=== PATIENT | male | born 1980 | race Caucasian/White ===

== ENCOUNTER 2021-10-12 16:19 | Inpatient (IN) | payer SELFPAY ==
[2021-10-12] VITALS (18 sets, daily range): BP systolic 101–158; BP diastolic 69–107; PULSE 88–133; RESP 15–28; TEMP 36.3–36.8; O2SAT 92–99
--- NOTE | ~2021-10-12 | XR_ITS ---
EXAMINATION: XR chest 1V portable DATE: 10/13/2021 13:20 INDICATION: Right pneumothorax. TECHNIQUE: A single frontal view of the chest was obtained. COMPARISON: View 10/12/2021 FINDINGS: There is a moderate-sized right pneumothorax. There are airspace opacities throughout right lung, worst in the upper lobe. No pleural effusion. The heart size is normal. There is gas in right chest wall. A right-sided chest tube is noted. IMPRESSION: 1. Worsened moderate-sized right pneumothorax. Right-sided chest tube noted. 2. Worsened airspace opacities in right lung, consistent with atelectasis and pulmonary edema versus pneumonia versus hemorrhage. Reviewed, dictated and finalized at location A. HOLOGIST MILITARY PERSONNEL IMPRESSION: 1. Worsened moderate-sized right pneumothorax. Right-sided chest tube noted. 2. Worsened airspace opacities in right lung, consistent with atelectasis and p ulmonary edema versus pneumonia versus hemorrhage.
--- NOTE | ~2021-10-12 | XR_ITS ---
EXAMINATION: XR chest 1V portable DATE: 10/14/2021 08:37 INDICATION: Right pneumothorax. TECHNIQUE: A single frontal view of the chest was obtained. COMPARISON: Chest single view 10/13/2021 FINDINGS: There is a tiny right apical pneumothorax. Right-sided chest tube is noted. There are airsp abigail opacities in all right lung zones. No pleural effusion. The heart size is normal. There is gas in right chest wall and right neck. IMPRESSION: 1. Tiny right apical pneumothorax with interval improvement. Right-sided chest tube noted. 2. Persistent airspace opacities in all right lung zones, consistent with pulmonary edema versus pneu monia versus hemorrhage. Reviewed, dictated and finalized at location A. TH MANAGEMENT DIRECTOR IMPRESSION: 1. Tiny right apical pneumothorax with interval improvement. Right-sided chest tube noted. 2. Persistent airspace opacities in all right lung zones, consistent with pulmo nary edema versus pneumonia versus hemorrhage.
--- NOTE | ~2021-10-12 | XR_ITS ---
EXAMINATION: XR chest 1V portable DATE: 10/12/2021 16:34 INDICATION: Right chest pain. TECHNIQUE: A single frontal view of the chest was obtained. COMPARISON: None. FINDINGS: There is a large right pneumothorax. There is atelectasis in right lung. No pleural effusio n. The heart size is normal. IMPRESSION: 1. Large right pneumothorax. I called this result to Dr. Joe Mas. Reviewed, dictated and finalized at location A. TLE MACHINE OPERATOR
--- NOTE | ~2021-10-12 | XR_ITS ---
EXAMINATION: XR chest 1V portable DATE: 10/15/2021 14:14 INDICATION: Right pneumothorax. TECHNIQUE: A single frontal view of the chest was obtained. COMPARISON: Chest single view at 8:40 AM FINDINGS: There is a small right pneumothorax. There are airspace opacities in all right lung zones. No pleural effusion. The heart size is normal. There is gas in right chest wall. IMPRESSION: 1. Small right pneumothorax with interval improvement. 2. Airspace opacities in right lung with mild improvement, consistent with pneumonia versus pulmonary edema versus hemorrhage. Reviewed, dictated and finalized at location A. ION MODEL IMPRESSION: 1. Small right pneumothorax with interval improvement. 2. Airspace opacities in right lung with mild improvement, consistent with pneu monia versus pulmonary edema versus hemorrhage.
--- NOTE | ~2021-10-12 | XR_ITS ---
EXAMINATION: XR chest 1V portable DATE: 10/15/2021 09:10 INDICATION: Right pneumothorax. TECHNIQUE: A single frontal view of the chest was obtained. COMPARISON: Chest single view 10/14/2021 FINDINGS: There is a small right pneumothorax. A right-sided chest tube is noted. The chest tube has been retracted since its initial placement. There are airspace opacities in all right lung zones. No pleural effusion. The heart size is normal. There is gas in right chest wall. IMPRESSION: 1. Worsened small right pleural effusion. The right-sided chest tube has been retracted since its ini tial placement, but some of the tube still overlies lung. 2. Airspace opacities in right lung with mild improvement, consistent with pneumonia versus pulmonary edema versus hemorrhage. Reviewed, dictated and finalized at location A. TATION INSPECTOR IMPRESSION: 1. Worsened small right pleural effusion. The right-sided chest tube has been r etracted since its initial placement, but some of the tube still overlies lung. 2. Airspace opacities in right lung with mild improvement, consistent with pneu monia versus pulmonary edema versus hemorrhage.
--- NOTE | ~2021-10-12 | XR_ITS ---
XR chest-chest tube insert/pos DATE: 10/12/2021 17:54 INDICATION: Chest tube insertion TECHNIQUE: Portable upright AP chest on 10/12/2021 at 1749 hours COMPARISON: 10/12/2021 portable AP chest at 1630 hours FINDINGS: There is interval placement of a right thoracostomy tube, the distal tip overlying the righ t fifth intercostal space posteriorly. There is mild subcutaneous emphysema of the lateral right ches t wall but the right lung is almost completely reexpanded, with very slight residual pneumothorax. Normal heart size. No cardiac or mediastinal shift. Minimal infiltrate or atelectasis of the lungs. IMPRESSION: Interval right thoracostomy tube placement with nearly complete reexpansion of the right lung, mild right chest wall subcutaneous emphysema Reviewed, dictated and finalized at Location A. Reviewed, dictated and finalized at location A. AL STICKER IMPRESSION: Interval right thoracostomy tube placement with nearly complete ree xpansion of the right lung, mild right chest wall subcutaneous emphysema
--- NOTE | 2021-10-12 16:42 | ED.SOB ---
HPI - SOB/Dyspnea General Chief Complaint: Shortness of Breath/Dyspnea <Irlanda Nicholson PA-C - Last Filed: 10/12/21 18:26> Stated Complaint: SOB, ? PNEUMO <Irlanda Nicholson PA-C - Last Filed: 10/12/21 18:26> Time Seen by Provider: 10/12/21 16:34 <Irlanda Nicholson PA-C - Last Filed: 10/12/21 18:26> Source: patient <TESS Coy Last Filed: 10/12/21 18:26> Mode of arrival: EMS <TESS Coy Last Filed: 10/12/21 18:26> Limitations: no limitations <TESS Coy Last Filed: 10/12/21 18:26> History of Present Illness HPI Narrative: This is a 41-year-old male that presents to the emergency department for shortness of breath ongoing since this morning. Reports he has had a dry cough for about the last month. Today he had a coughing attack and felt a pop in his right lung. Since he has had pain and felt even more short of breath. He was seen at the urgent care and diagnosed with a pneumothorax and sent here via EMS. Reports he is a former smoker, he quit smoking 6 weeks ago. Denies fever. <TESS Coy Last Filed: 10/12/21 18:26> Related Data Home Medications: Home Medications Medication Instructions Recorded Confirmed omeprazole 20 mg PO DAILY 10/12/21 <TESS Coy Last Filed: 10/12/21 18:26> Allergies/Adverse Reactions: Allergies Allergy/AdvReac Type Severity Reaction Status Date / Time naproxen Allergy Unknown Unconscious Verified 10/12/21 17:03 DIMETAPP Allergy Unknown Hives Uncoded 10/12/21 17:03 <TESS Coy Last Filed: 10/12/21 18:26> Review of Systems Review of Systems: CONSTITUTIONAL: Denies fever CARDIOVASCULAR: Reports chest pain. Denies edema. RESPIRATORY: Reports cough and dyspnea. <TESS Coy Last Filed: 10/12/21 18:26> All systems reviewed & are unremarkable except as noted in HPI and below <Irlanda Nicholson PA-C - Last Filed: 10/12/21 18:26> PMFSH Past Medical History Medical History: Medical History History of gastroesophageal reflux (GERD) <Irlanda Nicholson PA-C - Last Filed: 10/12/21 18:26> Social History Social History: Social History (Updated 10/12/21 @ 16:43 by Irlanda Nicholson PA-C) Smoking status: Former smoker <Irlanda Nicholson PA-C - Last Filed: 10/12/21 18:26> Exam Narrative: GENERAL: Well-appearing, well-nourished, and in no acute distress. HEAD: Normocephalic, atraumatic. EYES: EOMI. CHEST: No respiratory distress. Lung sounds diminished on the right. No wheezes rales or rhonchi HEART: Regular rate and rhythm. No murmur heard. Normal peripheral pulses. EXTREMITIES: Normal range of motion. No edema. SKIN: Warm, dry, no rash. NEURO: No focal deficits. Alert and oriented x3. PSYCH: Normal mood and affect <Irlanda Nicholson PA-C - Last Filed: 10/12/21 18:26> Course RELAY TESTER/PA Physician Supervision For this patient encounter, I reviewed the RELAY TESTER or PA documentation, treatment plan, and medical decision making; and I had lspi-gl-mpac time with this patient. I was also present during the procedure. <Joe Mas MD - Last Filed: 10/12/21 20:32> Consultations Consultation #1: Spoke with hospitalist about patient and work-up who accepts admission. Would like patient to be Covid swabbed. <Irlanda Nicholson PA-C - Last Filed: 10/12/21 18:26> Date: 10/12/21 <Irlanda Nicholson PA-C - Last Filed: 10/12/21 18:26> Consultation #2: Spoke with general surgery who will consult <Irlanda Nicholson PA-C - Last Filed: 10/12/21 18:26> Date: 10/12/21 <Irlanda Nicholson PA-C - Last Filed: 10/12/21 18:26> Vital Signs Vital signs: Vital Signs Temperature 98.2 F 10/12/21 16:20 Pulse Rate 115 H 10/12/21 16:20 Respiratory Rate 20 10/12/21 16:20 Blood Pressure 155/107 H 10/12/21 16:20 Pulse Oximetry 95 10/12/21 16:20 Temperature 98.2
[2021-10-12 16:52] LABS: Basophils Absolute Auto 0.1 K/mm3 (0.0-0.1); Basophils Percent Auto 0.5 % (0.2-1.2); Eosinophils Absolute Auto 0.1 K/mm3 (0-0.3); Eosinophils Percent Auto 0.7 % (0-4.4); Hematocrit 53.1 % (42.0-52.0); Hemoglobin 18.5 g/dL (14.0-18.0); Immature Granulocyte Absolute 0.03 K/mm3 (0.00-0.031); Immature Granulocyte Percent A 0.2 % (0-0.5); Lymphocytes Absolute Auto 2.88 K/mm3 (0.9-3.2); Lymphocytes Percent Auto 21.1 % (18.3-44.2); Mean Corpuscular HGB Conc 34.8 g/dl (32-36); Mean Corpuscular Hemoglobin 30.8 pg (26-34); Mean Corpuscular Volume 88.4 fl (80-100); Mean Platelet Volume 10.2 fl (7.4-10.4); Monocytes Absolute Auto 1.3 K/mm3 (0.1-0.6); Monocytes Percent Auto 9.4 % (2.6-8.5); Neutrophils Absolute Auto 9.3 K/mm3 (1.3-6.7); Neutrophils Percent Auto 68.1 % (45.5-73.1); Platelet Count Result 332 k/mm3 (150-375); Red Blood Count 6.01 M/mm3 (4.6-6.20); Red Cell Distribution Width 12.4 % (11.5-14.5); White Blood Count 13.7 K/mm3 (4.5-10.0)
[2021-10-12] MEDS: fentaNYL CITRATE INJ (*CRX) 100 MCG/2 ML VIAL IV PUSH (17:10)
[2021-10-12 17:20] LABS: Prothrombin Time 12.8 Seconds (11.1-14.7)
[2021-10-12 17:35] LABS: Alanine Aminotransferase 41 U/L (4-50); Albumin Level 4.7 g/dL (3.5-5.1); Alkaline Phosphatase 71 U/L (38-126); Anion Gap 14 mmol/L (8-16); Aspartate Amino Transferase 32 U/L (17-59); Blood Urea Nitrogen 10 mg/dL (9-20); Calcium 9.6 mg/dL (8.4-10.2); Carbon Dioxide 23 mmol/L (22-30); Chloride 101 mmol/L (98-107); Estimated CRCL calculation 122 ml/min; Estimated Glomerular Filt Rate > 60; Glucose 113 mg/dL (65-110); Potassium 3.8 mmol/L (3.4-5.0); Sodium 138 mmol/L (137-145)
[2021-10-12 17:42] LABS: Partial Thromboplastin Time 29.8 SECONDS (22.3-36.8)
--- NOTE | 2021-10-12 17:55 | PC.NURSE ---
Pt requiring chest tube placement. Pt signed consent with Dr. Mas and JEAN CLAUDE cassidy at beside. Chest tube placed right right side per protocol. Pt tolerated fairly well. Resting comfortably on stretcher at this time. Repeat chest xray taken.
[2021-10-12] MEDS: HYDROmorphone HCL INJ (*CRX) 1 MG/ML SYR 0.5 MG IV PUSH (18:18)
--- NOTE | 2021-10-12 18:53 | PM.CNGS ---
Assessment and Plan Assessment and plan (1) Pneumothorax: Qualifiers: Pneumothorax type: unspecified pneumothorax Qualified Code(s): J93.9 - Pneumothorax, unspecified Code(s): J93.9 - Pneumothorax, unspecified Status: Acute Assessment and Plan: s/p R CT, good reexpansion, cont CT to sxn, recheck CXR in am History of Present Illness Consult details Consult date: 10/12/21 Reason for consult: chest tube Requesting physician: Irlanda Nicholson PA-C Narrative: Pt is a 41 y/o M presenting to ED c/o severe SOB. Pt reports he had a coughing episode this am and felt a pop in his R lung. Pt reports immediate worsening SOB since that incident. Pt reports he has had a dry cough over last few wks. Pt denies any previous episodes. Workup, including imaging, significant for large R sided PTX. Pt has had R CT placed in ED c reexpansion of R lung. Pt reports improvement c breathing after CT placement. Review of Systems Constitutional: Constitutional: Denies anorexia, Denies chills, Reports fatigue, Denies fever(s), Denies headache(s), Denies lethargy, Denies malaise, Reports weakness, Denies weight gain and Denies weight loss Eyes: Eyes: Reports no additional eye complaints ENT: Reports system reviewed and no additional complaints, except as documented Cardiovascular: Cardiovascular: Reports no additional cardiovascular complaints Respiratory: Respiratory: Reports as per HPI, Reports cough, Reports pain on inspiration, Reports pain with cough, Reports dyspnea and Reports dyspnea on exertion Gastrointestinal: Gastrointestinal: Reports no additional gastrointestinal complaints Genitourinary: Genitourinary: Reports no additional male genitourinary complaints Musculoskeletal: Musculoskeletal: Reports no additional musculoskeletal complaints Integumentary/Breasts: Skin/Breast: Reports system reviewed and no additional complaints, except as docu Neurologic: Reports system reviewed and no additional complaints, except as documented Psychiatric: Psychiatric: Reports no additional psychiatric complaints Endocrine: Endocrine: Reports no additional endocrine complaints Hematologic/Lymphatic: Hematologic/Lymphatic: Reports no additional hematologic/lymphatic complaints Allergic/Immunologic: Allergic/Immunologic: Reports no additional allergic/immunologic complaints PMFSH Past Medical History Medical History History of gastroesophageal reflux (GERD) Social History Social History (Updated 10/12/21 @ 16:43 by Irlanda Nicholson PA-C) Smoking status: Former smoker Comments Surgical history - none FH - no thoracic history, no PTX Meds Home Medications and Allergies Home Medications Medication Instructions Recorded Confirmed Type omeprazole 20 mg PO DAILY 10/12/21 History Allergies Allergy/AdvReac Type Severity Reaction Status Date / Time naproxen Allergy Unknown Unconscious Verified 10/12/21 17:03 DIMETAPP Allergy Unknown Hives Uncoded 10/12/21 17:03 Vital Signs Vital Signs - 24 hr 10/12/21 16:20 10/12/21 17:21 10/12/21 17:26 Temperature 36.8 C Pulse Rate 115 H 88 93 Respiratory Rate 20 20 15 Blood Pressure 155/107 H 147/97 H 147/92 H Pulse Oximetry 95 94 96 10/12/21 17:29 10/12/21 17:56 10/12/21 18:01 Temperature Pulse Rate 106 H 113 H Respiratory Rate 22 H 26 H Blood Pressure 148/80 H 132/77 Pulse Oximetry 94 95 97 Exam Const: General: cooperative, comfortable and no acute distress Nutritional Appearance: obese Orientation/consciousness: patient oriented x3 Limitations: no limitations HENMT: Head: normal to inspection, normocephalic and atraumatic Ears: hearing grossly normal bilaterally General nose exam: Normal external nose present Face and sinus: normal facial exam Mouth: Yes Normal oral and palatal mucosa present and Yes moist mucous membranes abnormal Eyes: General: appearance normal, both
--- NOTE | 2021-10-12 19:00 | PC.NURSE ---
Assuming care of pt.
[2021-10-12] MEDS: MORPHINE SULFATE (*CRX) 4 MG/ML INJ IV PUSH (21:19)
--- NOTE | 2021-10-12 21:25 | PM.IMHP ---
H&P: HPI History of Present Illness Date/Time: 10/12/21 21:25 this is a 41-year-old male patient who stated that he has been feeling ill for the last month and half. The patient stated that he has been coughing. The patient has no fever chills. The patient stated that he does not have any current insurance and was not able to see a physician at this time. The patient stated that he has been working all day and when he went to the grocery store he started to cough heavily and felt a pop in his chest. The patient stated he felt like he had been stabbed by a knife. He never felt anything like this before. The patient said it was a sharp instead pain. Patient stated that it hurt so much it costs him to fall on the ground. The patient went to urgent care and had a chest x-ray there. He stated that he was told that he needed to go to the emergency room by ambulance as he was diagnosed with a pneumothorax. The patient does have a white count of 13.5 H&H is 18.5 and 53.1. Chest x-ray was read as large right pneumothorax. ER physician placed a chest tube. Post chest tube insertion shows good re-expansion. Surgery has been consulted. The patient does have some subcu emphysema lateral to the chest tube. Patient has been complaining of discomfort. He was given fentanyl, Dilaudid, IV Tylenol, and morphine in the emergency room. demo coordinator has been consulted according to the patient and stated that he was given the information on financial assistance. The patient is being admitted to observation status on the date of service of 10/12/2021. Chief Complaint: Chest pain Review of Systems Review of Systems: All systems reviewed & are unremarkable except as noted in HPI and below Constitutional: Constitutional: Reports as per HPI and Reports no additional constitutional complaints Eyes: Eyes: Reports as per HPI and Reports no additional eye complaints ENT: Reports system reviewed and no additional complaints, except as documented and Reports Normal hearing present Cardiovascular: Cardiovascular: Reports no additional cardiovascular complaints Respiratory: Respiratory: Reports no additional respiratory complaints and Reports no additional respiratory complaints Gastrointestinal: Gastrointestinal: Reports as per HPI and Reports no additional gastrointestinal complaints Musculoskeletal: Musculoskeletal: Reports no additional musculoskeletal complaints Integumentary/Breasts: Skin/Breast: Reports system reviewed and no additional complaints, except as docu and Reports as per HPI Neurologic: Reports system reviewed and no additional complaints, except as documented, Reports as per HPI and Reports Normal hearing present Psychiatric: Psychiatric: Reports no additional psychiatric complaints and Reports as per HPI Endocrine: Endocrine: Reports no additional endocrine complaints Hematologic/Lymphatic: Hematologic/Lymphatic: Reports no additional hematologic/lymphatic complaints Allergic/Immunologic: Allergic/Immunologic: Reports no additional allergic/immunologic complaints PMFSH Past Medical History Medical History (Updated 10/12/21 @ 21:37 by Leena Carreon NP) GERD without esophagitis History of gastroesophageal reflux (GERD) Tobacco abuse Patient stated he quit smoking since he has been sick the last month and a half Surgical History Surgical History (Updated 10/12/21 @ 21:37 by Leena Carreon NP) H/O skin graft H/O vasectomy Hx of cholecystectomy Family History Family History (Updated 10/12/21 @ 21:38 by Leena Carreon NP) Father Rheumatoid arthritis Social History Social History (Updated 10/12/21 @ 21:39 by Leena Carreon NP) Social History: The patient stated that he quit smoking approximately 6 weeks ago. He is and lives with his who is the durable power county attorney for healthcare. The patient has 3 children. The patient delivers food to different stores. The patient denies any marijuana or i
--- NOTE | 2021-10-12 23:35 | ADMGEN ---
This patient, Joyce Willett, was admitted to [facility] Surg Room 319-01. Patient/family oriented to hospital policies and general routines including ID bracelet, bed and alarms, visiting hours, pain management, procedures, bathroom and other care routines, personal items, smoking policy, room service/diet, and visiting hours. Information on how to activate the Rapid Response Team has been discussed. Patient/Family are encouraged to report perceived risks to care and to ask questions if they do not understand what they are told or what they should do.
[2021-10-12] MEDS: guaiFENesin/DEXTROMETHORPHAN 10 ML UDC PO (23:55)
[2021-10-12] MEDS: HYDROcodone/acetaminophen (*CRX) 5-325 MG TABLET 1 TAB PO (23:55)
[2021-10-13] VITALS (9 sets, daily range): BP systolic 123–138; BP diastolic 74–89; PULSE 97–113; RESP 14–26; TEMP 36.2–37.2; O2SAT 92–96
[2021-10-13 06:57] LABS: Basophils Absolute Auto 0.1 K/mm3 (0.0-0.1); Basophils Percent Auto 0.5 % (0.2-1.2); Eosinophils Absolute Auto 0.3 K/mm3 (0-0.3); Eosinophils Percent Auto 2.1 % (0-4.4); Hematocrit 54.7 % (42.0-52.0); Hemoglobin 19.2 g/dL (14.0-18.0); Immature Granulocyte Absolute 0.03 K/mm3 (0.00-0.031); Immature Granulocyte Percent A 0.2 % (0-0.5); Lymphocytes Absolute Auto 2.75 K/mm3 (0.9-3.2); Lymphocytes Percent Auto 22.6 % (18.3-44.2); Mean Corpuscular HGB Conc 35.1 g/dl (32-36); Mean Corpuscular Hemoglobin 30.8 pg (26-34); Mean Corpuscular Volume 87.7 fl (80-100); Mean Platelet Volume 10.3 fl (7.4-10.4); Monocytes Absolute Auto 1.1 K/mm3 (0.1-0.6); Monocytes Percent Auto 8.6 % (2.6-8.5); Platelet Count Result 273 k/mm3 (150-375); Red Blood Count 6.24 M/mm3 (4.6-6.20); Red Cell Distribution Width 12.2 % (11.5-14.5); White Blood Count 12.2 K/mm3 (4.5-10.0)
[2021-10-13 07:08] LABS: Anion Gap 12 mmol/L (8-16); Blood Urea Nitrogen 14 mg/dL (9-20); Calcium 8.7 mg/dL (8.4-10.2); Carbon Dioxide 28 mmol/L (22-30); Chloride 100 mmol/L (98-107); Estimated CRCL calculation 122 ml/min; Estimated Glomerular Filt Rate > 60; Glucose 110 mg/dL (65-110); Lactic Acid Reflex 0.8 mmol/L (0.7-2.1); Potassium 3.5 mmol/L (3.4-5.0); Sodium 140 mmol/L (137-145)
[2021-10-13] MEDS: HYDROcodone/acetaminophen (*CRX) 5-325 MG TABLET 1 TAB PO ×2 (09:29→20:22)
[2021-10-13] MEDS: guaiFENesin/DEXTROMETHORPHAN 10 ML UDC PO (09:29)
[2021-10-13] MEDS: ENOXAPARIN 40 MG/0.4 ML SYRINGE SUB-Q (09:29)
[2021-10-13] MEDS: PANTOPRAZOLE 40 MG TABLET PO (09:30)
[2021-10-13] MEDS: predniSONE 20 MG TABLET 60 MG PO (09:30)
--- NOTE | 2021-10-13 14:29 | PM.PNGS ---
Progress Note: A&P Assessment and Plan (1) Pneumothorax: Qualifiers: Pneumothorax type: unspecified pneumothorax Qualified Code(s): J93.9 - Pneumothorax, unspecified Code(s): J93.9 - Pneumothorax, unspecified Status: Acute Assessment and Plan: CXR reviewed and shows worsening R PTX, cont CT to sxn, clinically improved, will recheck CXR in am (2) Person under investigation for COVID-19: Code(s): Z20.822 - Contact with and (suspected) exposure to COVID-19 Status: Acute Assessment and Plan: cough for 1 mo, await testing Subjective Subjective Date/Time Seen: 10/13/21 14:29 Pt feels better, reports breathing much improved. Pt denies any pain other than some pain at insertion site, pt reports much less pressure in R chest Review of Systems Review of Systems: All systems reviewed & are unremarkable except as noted in HPI and below Exam Const: General: cooperative, comfortable and no acute distress Nutritional Appearance: obese Orientation/consciousness: patient oriented x3 Limitations: no limitations Chest: Other: R CT - large air leak, on suction Resp: Effort & Inspection: normal respiratory effort and able to speak in complete sentences Auscultation: diminished lung sounds Other: decreased BS on R Cardio: Rate: regular rate Rhythm: regular rhythm GI: Inspection: normal to inspection GI Palp: No abdominal tenderness, Yes Soft to palpation, No Tenderness to palpation present (GI), No Guarding due to palpation present (GI) and No Rigid due to palpation Objective Data Vital Signs Vital Signs: Vital Signs - 24 hr 10/12/21 16:20 10/12/21 17:21 10/12/21 17:26 Temperature 36.8 C Pulse Rate 115 H 88 93 Respiratory Rate 20 20 15 Blood Pressure 155/107 H 147/97 H 147/92 H Pulse Oximetry 95 94 96 10/12/21 17:29 10/12/21 17:56 10/12/21 18:01 Temperature Pulse Rate 106 H 113 H Respiratory Rate 22 H 26 H Blood Pressure 148/80 H 132/77 Pulse Oximetry 94 95 97 10/12/21 19:01 10/12/21 19:20 10/12/21 19:41 Temperature Pulse Rate 122 H 114 H 118 H Respiratory Rate 22 H 25 H 20 Blood Pressure 121/82 127/101 H 140/95 H Pulse Oximetry 95 97 10/12/21 19:53 10/12/21 20:00 10/12/21 20:21 Temperature Pulse Rate 117 H 133 H 126 H Respiratory Rate 25 H 21 H Blood Pressure 136/96 H 101/69 Pulse Oximetry 99 97 94 10/12/21 20:40 10/12/21 21:22 10/12/21 21:40 Temperature Pulse Rate 127 H 125 H 118 H Respiratory Rate 28 H 28 H 24 H Blood Pressure 116/90 158/83 H 134/79 Pulse Oximetry 93 94 94 10/12/21 22:01 10/12/21 22:21 10/12/21 23:00 Temperature 36.3 C L Pulse Rate 122 H 120 H 117 H Respiratory Rate 24 H 23 H 21 H Blood Pressure 113/70 124/77 120/81 Pulse Oximetry 92 92 92 10/13/21 00:29 10/13/21 04:00 10/13/21 07:00 Temperature 36.3 C L Pulse Rate 97 Respiratory Rate 26 H Blood Pressure 123/84 Pulse Oximetry 93 92 94 10/13/21 08:00 10/13/21 08:24 10/13/21 12:55 Temperature 36.6 C 37.0 C Pulse Rate 102 H 102 H 105 H Respiratory Rate 14 14 16 Blood Pressure 136/89 128/74 Pulse Oximetry 94 94 96 Intake/Output Intake/Output: Intake & Output 10/10/21 10/11/21 10/12/21 10/13/21 23:59 23:59 23:59 23:59 Intake Total 400 120 Output Total 442 Balance 400 -322 Meds/Results Medications: Active Medications Generic Name Dose Route Start Last Admin Trade Name Freq PRN Reason Stop Dose Admin Hydrocodone Bitart/Acetaminophen 1 tab 10/12/21 21:25 10/13/21 09:29 Hydrocodone/Acetaminophen (*Crx) 5-325 Mg Tablet PO 1 tab Q4HR PRN Administration chest pain 1-3 Albuterol 2 puff 10/12/21 21:29 Albuterol Sulfate (*Sp) Aerosol 1 Puff INHALATION Q6HRT PRN Shortness Of Breath Enoxaparin Sodium 40 mg 10/13/21 09:00 10/13/21 09:29 Enoxaparin 40 Mg/0.4 Ml Syringe SUB-Q 40 mg DAILY PEDRITO Administration Guaifenesin/Dextromethorphan 10 ml 10/12/21 21:29
[2021-10-13 16:12] LABS: EDCOVIDSCREEN Positive (Negative)
[2021-10-13 16:45] LABS: SARS-CoV-2 RNA PCR Negative (Negative)
--- NOTE | 2021-10-13 19:24 | PM.IMPN ---
Progress Note: A&P Assessment and Plan (1) Pneumothorax: Qualifiers: Pneumothorax type: unspecified pneumothorax Qualified Code(s): J93.9 - Pneumothorax, unspecified Code(s): J93.9 - Pneumothorax, unspecified Status: Acute Assessment and Plan: Surgery has been consulted. The patient currently has a chest tube. Repeat chest x-ray shows re-expansion of the right lung. Patient is still having some discomfort from the chest tube. I did order pain medication. I also started him on antibiotics and steroids and inhalers well. The patient has no insurance at this time. He was given information on financial assistance. (2) GERD without esophagitis: Code(s): K21.9 - Gastro-esophageal reflux disease without esophagitis Status: Chronic Assessment and Plan: The patient was continue with omeprazole. (3) Tobacco abuse: Code(s): Z72.0 - Tobacco use Status: Acute Assessment and Plan: The patient stated that he quit smoking 6 weeks ago when he started coughing and having respiratory problems. Green for smoking cessation. He has been approximately 5 minutes discussing smoking cessation. (4) Person under investigation for COVID-19: Code(s): Z20.822 - Contact with and (suspected) exposure to COVID-19 Status: Acute Assessment and Plan: PCR COVID is pending. Droplet and contact isolation is continued. 10/13/21 COVID PCR negative COVID rapid positive other confirmatory test is negative will continue droplet precaution isolation precautions and inflammatory markers have been ordered to assess affective disease is present cont current care chest tube In place defer to surgeon ongoing management Will initiate COVID treatment in a.m. is markers elevated patient is requiring 2 L nasal cannula at this time however given acute pneumothorax with chest tube in place this could be attributed to current clinical status instead of covid Subjective Date/time seen: 10/13/21 19:24 Patient denies any change in taste or smell. He states that he has recovered from bronchitis recently. He denies any diarrhea or other GI symptoms. He denies headache cough shortness of breath or chest pain unrelated to his chest tube. Patient has a positive rapid and a negative PCR for COVID will order COVID inflammatory labs to evaluate if with active COVID infection at this time. Exam Narrative: GEN: NAD, AAOx3, cooperative HEENT: NCAT, MMM, EOMI Neck: no JVD Lungs: Chest tube to gravity right lateral chest, symmetric chest rise, no acute distress Abd: soft, NT, ND Ext: moves all, no cyanosis, no clubbing, no edema Neuro: Cranial nerves intact no focal neurological deficits appreciated Psych: Mood and affect congruent judgment insight intact Objective Data Vital Signs Vital Signs: Vital Signs - 24 hr 10/12/21 19:41 10/12/21 19:53 10/12/21 20:00 Temperature Pulse Rate 118 H 117 H 133 H Respiratory Rate 20 25 H Blood Pressure 140/95 H 136/96 H Pulse Oximetry 97 99 97 10/12/21 20:21 10/12/21 20:40 10/12/21 21:22 Temperature Pulse Rate 126 H 127 H 125 H Respiratory Rate 21 H 28 H 28 H Blood Pressure 101/69 116/90 158/83 H Pulse Oximetry 94 93 94 10/12/21 21:40 10/12/21 22:01 10/12/21 22:21 Temperature Pulse Rate 118 H 122 H 120 H Respiratory Rate 24 H 24 H 23 H Blood Pressure 134/79 113/70 124/77 Pulse Oximetry 94 92 92 10/12/21 23:00 10/13/21 00:29 10/13/21 04:00 Temperature 97.3 F L 97.3 F L Pulse Rate 117 H 97 Respiratory Rate 21 H 26 H Blood Pressure 120/81 123/84 Pulse Oximetry 92 93 92 10/13/21 07:00 10/13/21 08:00 10/13/21 08:24 Temperature 97.9 F Pulse Rate 102 H 102 H Respiratory Rate 14 14 Blood Pressure 136/89 Pulse Oximetry 94 94 94 10/13/21 12:55 10/13/21 15:57 Temperature 98.6 F 98.9 F Pulse Rate 105 H 101 H Respiratory Rate 16 14 Blood Pressure 128/74 129/81 Pulse Oximetry 96 95 Intake/Output Inta
[2021-10-14] VITALS (8 sets, daily range): BP systolic 120–136; BP diastolic 75–99; PULSE 99–117; RESP 18–20; TEMP 35.9–36.9; O2SAT 93–98
[2021-10-14 07:53] LABS: Basophils Absolute Auto 0.1 K/mm3 (0.0-0.1); Basophils Percent Auto 0.5 % (0.2-1.2); Eosinophils Absolute Auto 0.3 K/mm3 (0-0.3); Eosinophils Percent Auto 1.9 % (0-4.4); Hematocrit 51.3 % (42.0-52.0); Hemoglobin 17.8 g/dL (14.0-18.0); Immature Granulocyte Absolute 0.04 K/mm3 (0.00-0.031); Immature Granulocyte Percent A 0.3 % (0-0.5); Lymphocytes Absolute Auto 2.96 K/mm3 (0.9-3.2); Lymphocytes Percent Auto 22.8 % (18.3-44.2); Mean Corpuscular HGB Conc 34.7 g/dl (32-36); Mean Corpuscular Volume 89.4 fl (80-100); Mean Platelet Volume 10.3 fl (7.4-10.4); Monocytes Percent Auto 7.8 % (2.6-8.5); Neutrophils Absolute Auto 8.7 K/mm3 (1.3-6.7); Neutrophils Percent Auto 66.7 % (45.5-73.1); Platelet Count Result 286 k/mm3 (150-375); Red Blood Count 5.74 M/mm3 (4.6-6.20); Red Cell Distribution Width 12.2 % (11.5-14.5)
--- NOTE | 2021-10-14 08:04 | PM.IMPN ---
Progress Note: A&P Assessment and Plan (1) Pneumothorax: Qualifiers: Pneumothorax type: unspecified pneumothorax Qualified Code(s): J93.9 - Pneumothorax, unspecified Code(s): J93.9 - Pneumothorax, unspecified Status: Acute Assessment and Plan: Surgery has been consulted. The patient currently has a chest tube. Repeat chest x-ray shows re-expansion of the right lung. Patient is still having some discomfort from the chest tube. I did order pain medication. I also started him on antibiotics and steroids and inhalers well. The patient has no insurance at this time. He was given information on financial assistance. (2) GERD without esophagitis: Code(s): K21.9 - Gastro-esophageal reflux disease without esophagitis Status: Chronic Assessment and Plan: The patient was continue with omeprazole. (3) Tobacco abuse: Code(s): Z72.0 - Tobacco use Status: Acute Assessment and Plan: The patient stated that he quit smoking 6 weeks ago when he started coughing and having respiratory problems. Green for smoking cessation. He has been approximately 5 minutes discussing smoking cessation. (4) Person under investigation for COVID-19: Code(s): Z20.822 - Contact with and (suspected) exposure to COVID-19 Status: Acute Assessment and Plan: PCR COVID is pending. Droplet and contact isolation is continued. 10/13/21 COVID PCR negative COVID rapid positive other confirmatory test is negative will continue droplet precaution isolation precautions and inflammatory markers have been ordered to assess affective disease is present cont current care chest tube In place defer to surgeon ongoing management Will initiate COVID treatment in a.m. is markers elevated patient is requiring 2 L nasal cannula at this time however given acute pneumothorax with chest tube in place this could be attributed to current clinical status instead of covid 10/14/21 inflammatory markers do not appear consistent w COVID infection, leukocytosis without lymphopenia, no AST/ALT variations, suspect COVID PCR is accurate test, however, will request pt to quarantine upon dc and return to hospital if he develops any symptoms of COVID chest tube per surgery possible clamp tomorrow activity up to chair cont supportive care oral pain medication PRN dc planning Subjective Date/time seen: 10/14/21 08:04 pt feeling better of RA chest tube to gravity Exam Narrative: GEN: NAD, AAOx3, cooperative HEENT: NCAT, MMM, EOMI Neck: no JVD Lungs: Chest tube to gravity right lateral chest, symmetric chest rise, no acute distress Abd: soft, NT, ND Ext: moves all, no cyanosis, no clubbing, no edema Neuro: Cranial nerves intact no focal neurological deficits appreciated Psych: Mood and affect congruent judgment insight intact Objective Data Vital Signs Vital Signs: Vital Signs - 24 hr 10/13/21 08:24 10/13/21 12:55 10/13/21 15:57 Temperature 97.9 F 98.6 F 98.9 F Pulse Rate 102 H 105 H 101 H Respiratory Rate 14 16 14 Blood Pressure 136/89 128/74 129/81 Pulse Oximetry 94 96 95 10/13/21 19:53 10/13/21 20:00 10/14/21 00:00 Temperature 97.2 F L 97 F L Pulse Rate 113 H 99 Respiratory Rate 20 20 Blood Pressure 138/80 120/75 Pulse Oximetry 95 93 94 10/14/21 04:00 Temperature 96.7 F L Pulse Rate 100 Respiratory Rate 20 Blood Pressure 136/87 Pulse Oximetry 95 Intake/Output Intake/Output: Intake & Output 10/11/21 10/12/21 10/13/21 10/14/21 23:59 23:59 23:59 23:59 Intake Total 400 720 500 Output Total 1852 Balance 400 -1132 500 Meds/Results Medications: Active Medications Generic Name Dose Route Start Last Admin Trade Name Freq PRN Reason Stop Dose Admin Hydrocodone Bitart/Acetaminophen 1 tab 10/12/21 21:25 10/13/21 20:22 Hydrocodone/Acetaminophen (*Crx) 5-325 Mg Tablet PO 1 tab Q4HR PRN Administration chest pain 1-3 Albuterol 2 puff 10/12/21
[2021-10-14 08:05] LABS: D Dimer 0.88 ug/mL (<0.48)
[2021-10-14 08:09] LABS: CRP 7.9 mg/dL (<1.0); Lactate Dehydrogenase 321 U/L (313-618)
[2021-10-14] MEDS: guaiFENesin/DEXTROMETHORPHAN 10 ML UDC PO ×3 (08:34→19:55)
[2021-10-14] MEDS: HYDROcodone/acetaminophen (*CRX) 5-325 MG TABLET 1 TAB PO ×2 (08:34→21:34)
[2021-10-14] MEDS: ENOXAPARIN 40 MG/0.4 ML SYRINGE SUB-Q (08:36)
[2021-10-14] MEDS: predniSONE 20 MG TABLET 60 MG PO (08:36)
[2021-10-14] MEDS: PANTOPRAZOLE 40 MG TABLET PO (08:36)
--- NOTE | 2021-10-14 09:50 | PM.PNGS ---
Progress Note: A&P Assessment and Plan (1) Pneumothorax: Qualifiers: Pneumothorax type: unspecified pneumothorax Qualified Code(s): J93.9 - Pneumothorax, unspecified Code(s): J93.9 - Pneumothorax, unspecified Status: Acute Assessment and Plan: improved CXR this am and no air leak, will place CT to H2O seal, recheck CXR in am, cont to encourage IS, deep breathing (2) COVID-19: Code(s): U07.1 - COVID-19 Status: Acute Assessment and Plan: supportive care, isolation precautions Subjective Subjective Date/Time Seen: 10/14/21 09:51 feels good, no SOB, reports he is using IS and taking deep breaths s issue Review of Systems Review of Systems: All systems reviewed & are unremarkable except as noted in HPI and below Exam Const: General: cooperative, comfortable and no acute distress Chest: Chest palpation & inspection: normal inspection of the chest Other: R CT - no air leak Resp: Effort & Inspection: normal respiratory effort Auscultation: clear to auscultation bilaterally Cardio: Rate: regular rate Rhythm: regular rhythm GI: Inspection: normal to inspection GI Palp: No abdominal tenderness and Yes Soft to palpation Objective Data Vital Signs Vital Signs: Vital Signs - 24 hr 10/13/21 12:55 10/13/21 15:57 10/13/21 19:53 Temperature 37.0 C 37.2 C Pulse Rate 105 H 101 H Respiratory Rate 16 14 Blood Pressure 128/74 129/81 Pulse Oximetry 96 95 95 10/13/21 20:00 10/14/21 00:00 10/14/21 04:00 Temperature 36.2 C L 36.1 C L 35.9 C L Pulse Rate 113 H 99 100 Respiratory Rate 20 20 20 Blood Pressure 138/80 120/75 136/87 Pulse Oximetry 93 94 95 Intake/Output Intake/Output: Intake & Output 10/11/21 10/12/21 10/13/21 10/14/21 23:59 23:59 23:59 23:59 Intake Total 400 720 500 Output Total 1852 Balance 400 -1132 500 Meds/Results Medications: Active Medications Generic Name Dose Route Start Last Admin Trade Name Freq PRN Reason Stop Dose Admin Hydrocodone Bitart/Acetaminophen 1 tab 10/12/21 21:25 10/14/21 08:34 Hydrocodone/Acetaminophen (*Crx) 5-325 Mg Tablet PO 1 tab Q4HR PRN Administration chest pain 1-3 Albuterol 2 puff 10/12/21 21:29 Albuterol Sulfate (*Sp) Aerosol 1 Puff INHALATION Q6HRT PRN Shortness Of Breath Enoxaparin Sodium 40 mg 10/13/21 09:00 10/14/21 08:36 Enoxaparin 40 Mg/0.4 Ml Syringe SUB-Q 40 mg DAILY PEDRITO Administration Guaifenesin/Dextromethorphan 10 ml 10/12/21 21:29 10/14/21 08:34 Guaifenesin/Dextromethorphan 10 Ml Udc PO 10 ml Q4H PRN Administration Cough Hydromorphone HCl 1 mg 10/12/21 21:26 Hydromorphone Hcl Inj (*Crx) 1 Mg/Ml Syr IV PUSH Q4HR PRN chest pain Ceftriaxone Sodium/Dextrose 1 gm in 50 mls @ 100 mls/hr 10/12/21 21:30 10/13/21 20:29 Rocephin 1 Gm/D5w 50 Ml IVPB 100 mls/hr Q24H PEDRITO Administration Azithromycin 500 mg in 250 mls @ 250 mls/hr 10/12/21 22:00 10/13/21 20:28 Zithromax IVPB 250 mls/hr Q24H PEDRITO Administration Pantoprazole Sodium 40 mg 10/13/21 09:00 10/14/21 08:36 Pantoprazole 40 Mg Tablet PO 40 mg QAM PEDRITO Administration Prednisone 60 mg 10/13/21 08:00 10/14/21 08:36 Prednisone 20 Mg Tablet PO 60 mg DAILY@0800 PEDRITO Administration Radiology Results: ITS Impressions Chest X-Ray 10/14/21 08:49 IMPRESSION: 1. Tiny right apical pneumothorax with interval improvement. Right-sided chest tube noted. 2. Persistent airspace opacities in all right lung zones, consistent with pulmonary edema versus pneumonia versus hemorrhage. Labs Labs: Laboratory Results - last 24 hr 10/12/21 10/13/21 10/14/21 19:04 15:49 07:12 WBC 13.0 H RBC 5.74 Hgb 17.8 Hct 51.3 MCV 89.4 MCH 31.0 MCHC 34.7 RDW 12.2 Plt Count 286 MPV 10.3 Immature Gran % (Auto) 0.3 Neut % (Auto) 66.7 Lymph % (Auto) 22.8 [place] % (Auto) 7.8 Eos % (Auto) 1.9 B
[2021-10-14] MEDS: polyethylene glycoL 3350 17 GM POWD.PACK PO (12:14)
[2021-10-15 00:26] VITALS: BP 120/70; PULSE 99; RESP 18; TEMP 36.8; O2SAT 95
[2021-10-15 04:00] VITALS: BP 130/77; PULSE 80; RESP 18; TEMP 36.8; O2SAT 94
[2021-10-15 08:00] VITALS: BP 122/89; PULSE 103; RESP 18; TEMP 36.2; O2SAT 93
[2021-10-15] MEDS: predniSONE 20 MG TABLET PO (08:23)
[2021-10-15] MEDS: ENOXAPARIN 40 MG/0.4 ML SYRINGE SUB-Q (08:23)
[2021-10-15] MEDS: PANTOPRAZOLE 40 MG TABLET PO (08:23)
[2021-10-15 09:20] VITALS: O2SAT 93
[2021-10-15] MEDS: polyethylene glycoL 3350 17 GM POWD.PACK PO (11:38)
[2021-10-15] MEDS: guaiFENesin/DEXTROMETHORPHAN 10 ML UDC PO ×2 (11:38→16:24)
[2021-10-15 11:42] VITALS: BP 132/85; PULSE 114; RESP 20; TEMP 36.3; O2SAT 95
--- NOTE | 2021-10-15 12:28 | PM.PNGS ---
Progress Note: A&P Assessment and Plan (1) Pneumothorax: Qualifiers: Pneumothorax type: unspecified pneumothorax Qualified Code(s): J93.9 - Pneumothorax, unspecified Code(s): J93.9 - Pneumothorax, unspecified Status: Acute Assessment and Plan: s/p R CT removal, cont to encourage IS/deep breathing, repeat CXR later today (2) COVID-19: Code(s): U07.1 - COVID-19 Status: Acute Assessment and Plan: cont supportive care Subjective Subjective Date/Time Seen: 10/15/21 12:28 feels good, no SOB, up and moving s issue Review of Systems Review of Systems: All systems reviewed & are unremarkable except as noted in HPI and below Exam Const: General: cooperative, comfortable and no acute distress Chest: Chest palpation & inspection: normal inspection of the chest Other: R CT - no leak, removed at bedside Resp: Effort & Inspection: normal respiratory effort Auscultation: clear to auscultation bilaterally Cardio: Rate: regular rate Rhythm: regular rhythm GI: Inspection: normal to inspection GI Palp: Yes Soft to palpation and No Tenderness to palpation present (GI) Objective Data Vital Signs Vital Signs: Vital Signs - 24 hr 10/14/21 12:47 10/14/21 17:13 10/14/21 20:00 Temperature 36.0 C L 36.3 C L Pulse Rate 103 H 117 H Respiratory Rate 18 18 Blood Pressure 125/87 120/99 H Pulse Oximetry 97 94 95 10/14/21 21:00 10/15/21 00:26 10/15/21 04:00 Temperature 36.9 C 36.8 C 36.8 C Pulse Rate 107 H 99 80 Respiratory Rate 18 18 18 Blood Pressure 135/84 120/70 130/77 Pulse Oximetry 93 95 94 10/15/21 08:00 10/15/21 09:20 10/15/21 11:42 Temperature 36.2 C L 36.3 C L Pulse Rate 103 H 114 H Respiratory Rate 18 20 Blood Pressure 122/89 132/85 Pulse Oximetry 93 93 95 Intake/Output Intake/Output: Intake & Output 10/12/21 10/13/21 10/14/21 10/15/21 23:59 23:59 23:59 23:59 Intake Total 400 1020 2090 900 Output Total 1852 950 400 Balance 400 -832 1140 500 Meds/Results Medications: Active Medications Generic Name Dose Route Start Last Admin Trade Name Freq PRN Reason Stop Dose Admin Hydrocodone Bitart/Acetaminophen 1 tab 10/14/21 17:56 10/14/21 21:34 Hydrocodone/Acetaminophen (*Crx) 5-325 Mg Tablet PO 1 tab Q4H PRN Administration Pain Rated 4-6 Albuterol 2 puff 10/12/21 21:29 Albuterol Sulfate (*Sp) Aerosol 1 Puff INHALATION Q6HRT PRN Shortness Of Breath Enoxaparin Sodium 40 mg 10/13/21 09:00 10/15/21 08:23 Enoxaparin 40 Mg/0.4 Ml Syringe SUB-Q 40 mg DAILY PEDRITO Administration Guaifenesin/Dextromethorphan 10 ml 10/12/21 21:29 10/15/21 11:38 Guaifenesin/Dextromethorphan 10 Ml Udc PO 10 ml Q4H PRN Administration Cough Ceftriaxone Sodium/Dextrose 1 gm in 50 mls @ 100 mls/hr 10/12/21 21:30 10/14/21 20:54 Rocephin 1 Gm/D5w 50 Ml IVPB 100 mls/hr Q24H PEDRITO Administration Azithromycin 500 mg in 250 mls @ 250 mls/hr 10/12/21 22:00 10/14/21 21:28 Zithromax IVPB 250 mls/hr Q24H PEDRITO Administration Oxycodone/Acetaminophen 1 tablet 10/14/21 17:56 Oxycodone/Acetaminophen (*Crx) 5-325 Mg Tablet PO Q4H PRN Pain Rated 7-10 Pantoprazole Sodium 40 mg 10/13/21 09:00 10/15/21 08:23 Pantoprazole 40 Mg Tablet PO 40 mg QAM PEDRITO Administration Polyethylene Glycol 17 gm 10/14/21 11:27 10/15/21 11:38 Polyethylene Glycol 3350 17 Gm Powd.Pack PO 17 gm QAM PRN Administration Constipation Prednisone 20 mg 10/15/21 08:00 10/15/21 08:23 Prednisone 20 Mg Tablet PO 20 mg DAILY@0800 PEDRITO Administration Radiology Results: ITS Impressions Chest X-Ray 10/15/21 09:29 IMPRESSION: 1. Worsened small right pleural effusion. The right-sided chest tube has been retracted since its initial placement, but some of the tube still overlies lung. 2. Airspace opacities in right lung with mild improvement, consistent with pneumonia versus pulmonary edema ve
[2021-10-15 16:00] VITALS: BP 129/80; PULSE 96; RESP 18; TEMP 36.5; O2SAT 96
--- NOTE | 2021-10-15 16:28 | PM.IMPN ---
Progress Note: A&P Assessment and Plan (1) Pneumothorax: Qualifiers: Pneumothorax type: unspecified pneumothorax Qualified Code(s): J93.9 - Pneumothorax, unspecified Code(s): J93.9 - Pneumothorax, unspecified Status: Acute Assessment and Plan: The patient has no insurance at this time. He was given information on financial assistance. (2) GERD without esophagitis: Code(s): K21.9 - Gastro-esophageal reflux disease without esophagitis Status: Chronic Assessment and Plan: The patient was continue with omeprazole. (3) Tobacco abuse: Code(s): Z72.0 - Tobacco use Status: Acute Assessment and Plan: He has been approximately 5 minutes discussing smoking cessation. (4) Person under investigation for COVID-19: Code(s): Z20.822 - Contact with and (suspected) exposure to COVID-19 Status: Acute Assessment and Plan: With symptoms Subjective Date/time seen: 10/15/21 16:28 Interval history: 41-year-old male patient who stated that he has been feeling ill for the last month and half. The patient stated that he has been coughing. The patient has no fever chills. The patient stated that he does not have any current insurance and was not able to see a physician at this time. Pt had chest tube removed pt had cxr plan to discharge tomorrow. Watch overnite off oxygen. 10/13/21 COVID PCR negative COVID rapid positive other confirmatory test is negative will continue droplet precaution isolation precautions and inflammatory markers have been ordered to assess affective disease is present cont current care chest tube In place defer to surgeon ongoing management Will initiate COVID treatment in a.m. is markers elevated patient is requiring 2 L nasal cannula at this time however given acute pneumothorax with chest tube in place this could be attributed to current clinical status instead of covid 10/14/21 inflammatory markers do not appear consistent w COVID infection, leukocytosis without lymphopenia, no AST/ALT variations, suspect COVID PCR is accurate test, however, will request pt to quarantine upon dc and return to hospital if he develops any symptoms of COVID chest tube per surgery possible clamp tomorrow activity up to chair cont supportive care oral pain medication PRN dc planning Review of Systems Review of Systems: All systems reviewed & are unremarkable except as noted in HPI and below Exam Narrative: GEN: Comfortable Neck: no JVD Lungs: Chest Bl decreased BS Abd: soft, NT, ND Ext: moves all, no cyanosis, no clubbing, no edema Neuro: Cranial nerves intact no focal neurological deficits appreciated Psych: Mood and affect congruent judgment insight intact Objective Data Vital Signs Vital Signs: Vital Signs - 24 hr 10/14/21 17:13 10/14/21 20:00 10/14/21 21:00 Temperature 36.3 C L 36.9 C Pulse Rate 117 H 107 H Respiratory Rate 18 18 Blood Pressure 120/99 H 135/84 Pulse Oximetry 94 95 93 10/15/21 00:26 10/15/21 04:00 10/15/21 08:00 Temperature 36.8 C 36.8 C 36.2 C L Pulse Rate 99 80 103 H Respiratory Rate 18 18 18 Blood Pressure 120/70 130/77 122/89 Pulse Oximetry 95 94 93 10/15/21 09:20 10/15/21 11:42 Temperature 36.3 C L Pulse Rate 114 H Respiratory Rate 20 Blood Pressure 132/85 Pulse Oximetry 93 95 Intake/Output Intake/Output: Intake & Output 10/12/21 10/13/21 10/14/21 10/15/21 23:59 23:59 23:59 23:59 Intake Total 400 1020 2090 1140 Output Total 1852 950 400 Balance 400 -832 1140 740 Meds/Results Medications: Active Medications Generic Name Dose Route Start Last Admin Trade Name Freq PRN Reason Stop Dose Admin Hydrocodone Bitart/Acetaminophen 1 tab 10/14/21 17:56 10/14/21 21:34 Hydrocodone/Acetaminophen (*Crx) 5-325 Mg Tablet PO 1 tab Q4H PRN Administration Pain Rated 4-6 Albuterol 2 puff 10/12/21 21:29 Albuterol Sulfate (*Sp) Aerosol 1 Puff INHALATION
--- NOTE | 2021-10-15 17:07 | PM.DS ---
DS: Admitting Diagnosis Discharge Date 10/15/21 Admitting Diagnosis Chest pain DS: Discharge Diagnosis Discharge Diagnosis (1) Pneumothorax: Qualifiers: Pneumothorax type: unspecified pneumothorax Qualified Code(s): J93.9 - Pneumothorax, unspecified Code(s): J93.9 - Pneumothorax, unspecified Status: Acute Assessment and Plan: The patient has no insurance at this time. He was given information on financial assistance. (2) GERD without esophagitis: Code(s): K21.9 - Gastro-esophageal reflux disease without esophagitis Status: Chronic Assessment and Plan: The patient was continue with omeprazole. (3) Tobacco abuse: Code(s): Z72.0 - Tobacco use Status: Acute Assessment and Plan: He has been approximately 5 minutes discussing smoking cessation. (4) Person under investigation for COVID-19: Code(s): Z20.822 - Contact with and (suspected) exposure to COVID-19 Status: Acute Assessment and Plan: With symptoms positives in family DS: Summary Hospital Course Hospital Course: 41-year-old male patient who stated that he has been feeling ill for the last month and half. The patient stated that he has been coughing. The patient has no fever chills. The patient stated that he does not have any current insurance and was not able to see a physician at this time. Pt had chest tube removed pt had cxr plan to discharge tomorrow. Watch overnite off oxygen. 10/13/21 COVID PCR negative COVID rapid positive other confirmatory test is negative will continue droplet precaution isolation precautions and inflammatory markers have been ordered to assess affective disease is present cont current care chest tube In place defer to surgeon ongoing management Will initiate COVID treatment in a.m. is markers elevated patient is requiring 2 L nasal cannula at this time however given acute pneumothorax with chest tube in place this could be attributed to current clinical status instead of covid 10/14/21 inflammatory markers do not appear consistent w COVID infection, leukocytosis without lymphopenia, no AST/ALT variations, suspect COVID PCR is accurate test, however, will request pt to quarantine upon dc and return to hospital if he develops any symptoms of COVID chest tube per surgery possible clamp tomorrow activity up to chair cont supportive care oral pain medication PRN dc planning 10/15/21 chest tube removed Pt had cxr reviewed by surgery team Pt is ok for DC Time Spent with Patient Time attestation: Total time spent providing and/or coordinating discharge services:40 minutes onday of dischrage Exam Narrative: GEN: Comfortable Neck: no JVD Lungs: Chest Bl decreased BS Abd: soft, NT, ND Ext: moves all, no cyanosis, no clubbing, no edema Neuro: Cranial nerves intact no focal neurological deficits appreciated Psych: Mood and affect congruent judgment insight intact Discharge Plan Discharge Attending physician on discharge: Destiny Robertson Consulting providers: Rufina Zhang ; Irlanda Nicholson ; Leena Carreon ; Kathie Sosa ; Jamar Valdez ; Cortez Pimentel V. Discharging Clinician: Destiny Robertson Anticipated Discharge Date/Time: 10/15/21 17:07 Patient Disposition: Home, Self-Care Activity: as tolerated Diet: regular Discharge Instructions: pt must self quarantine until Sep social distancing wearing mask face Patient Instructions: Antibiotic Form Stand Alone Forms: General Discharge Information Follow-up/Referrals: Rufina Zhang MD [Physician] - (in 2-4 weeks time ) Discharge Medications: New albuterol sulfate [Proventil HFA] 90 mcg/actuation Hfa Aerosol Inhaler 2 puff inhalation Q6HRT PRN (Reason: Shortness Of Breath) Qty: 1 RF: 0 prednisone 20 mg Tablet 20 mg PO DAILY@0800 Qty: 7 RF: 0 Continued omeprazole 20 mg Tablet,Delayed Release (Dr/Ec) 20 mg PO DAILY RF: 0
== END 2021-10-15 18:45 | disposition home or self-care (01) | DRG 143 ==
LOC: ANHED 18:23 → ANH3MEDSUR 22:10
PROVIDERS: Hospitalist; Nurse Practitioner; Physician Assistant; Admitting Provider Family Medicine; Emergency Provider Emergency Medicine; Visit Provider Family Medicine
DX: J93.9 Pneumothorax, unspecified (principal); Z87.891 Personal history of nicotine dependence; K21.9 Gastro-esophageal reflux disease without esophagitis; J98.2 Interstitial emphysema; Z90.49 Acquired absence of other specified parts of digestive tract; Z20.822 Contact with and (suspected) exposure to COVID-19
CPT/HCPCS: 32551; 36415; 71045; 80048; 80053; 82728; 83605; 83615; 83735; 85025; 85380; 85610; 85730; 86140; 87426; 96365; 96366; 96367; 96368; 96372; 96375; 99291; A9270; C1729; C9803; G0378; G0379; J0131; J0456; J0696; J1170; J1650; J2270; J3010; J7512; U0003; U0005

== ENCOUNTER 2021-10-21 07:37 | Inpatient (IN) | payer OTHER, SELFPAY ==
[2021-10-21] VITALS (22 sets, daily range): BP systolic 103–179; BP diastolic 66–122; PULSE 111–158; RESP 11–28; TEMP 36.1–38.1; O2SAT 87–98; BMI 32.2
--- NOTE | ~2021-10-21 | XR_ITS ---
EXAMINATION: XR chest 1V portable DATE: 10/27/2021 11:30 INDICATION: Right pneumothorax. TECHNIQUE: A single frontal view of the chest was obtained. COMPARISON: Chest 2 views at 10:02 AM FINDINGS: There is a moderate-sized right pneumothorax. No pleural effusion. The heart size is normal . Pneumomediastinum is again seen. There is gas in the neck and chest wall soft tissues, right worse than left IMPRESSION: 1. Stable moderate-sized right pneumothorax. 2. Persistent pneumomediastinum. Reviewed, dictated and finalized at location A. ITAL SOCIAL WORKER
--- NOTE | ~2021-10-21 | XR_ITS ---
EXAMINATION: XR chest 1V portable EXAM DATE: 10/23/2021 06:34 INDICATION: Right pneumothorax. TECHNIQUE: Portable AP frontal chest x-ray was obtained. Comparison is made to prior examination from 10/22/2021. FINDINGS: There is a right-sided chest tube. The chest tube side port is just outside of the ribs lev el, unchanged from yesterday. There is a tiny right apical pneumothorax again identified. Trace pneum omediastinum. Axillary and subcutaneous gas in the neck. Small amount of patchy bibasilar airspace di sease. Cardiomediastinal silhouette is normal. There are no osseous abnormalities identified. IMPRESSION: 1. Chest tube side port just outside of thoracic wall, but tiny right apical pneumothorax is stable. 2. Small amount of bilateral atelectasis or pneumonia. 3. Pneumomediastinum. Reviewed, dictated and finalized at location A. FENCE ERECTOR IMPRESSION: 1. Chest tube side port just outside of thoracic wall, but tiny right apical p neumothorax is stable. 2. Small amount of bilateral atelectasis or pneumonia. 3. Pneumomediastinum.
--- NOTE | ~2021-10-21 | XR_ITS ---
EXAMINATION: XR chest 1V portable EXAM DATE: 10/24/2021 06:17 INDICATION: Right pneumothorax, chest tube TECHNIQUE: Portable AP frontal chest x-ray was obtained. Comparison is made to prior examination from 10/23/2021. FINDINGS: There is no significant interval change. There is a right-sided chest tube. The chest tube side port is just outside of the ribs level, unchanged from yesterday. There is a tiny right apical pneumothorax again identified. Evidence of pneumomediastinum. Axillary and subcutaneous gas in the ne ck. Small amount of patchy bibasilar airspace disease, pneumonia and/or atelectasis. Cardiomediastina l silhouette is normal. There are no osseous abnormalities identified. IMPRESSION: 1. Chest tube side port just outside of thoracic wall, stable tiny right apical pneumothorax. 2. Small amount of bilateral atelectasis or pneumonia. 3. Pneumomediastinum. Reviewed, dictated and finalized at location A. OGRAPHIC PRESS SCREWMAKER IMPRESSION: 1. Chest tube side port just outside of thoracic wall, stable tiny right apica l pneumothorax. 2. Small amount of bilateral atelectasis or pneumonia. 3. Pneumomediastinum.
--- NOTE | ~2021-10-21 | XR_ITS ---
EXAMINATION: XR chest 1V portable DATE: 10/26/2021 12:03 INDICATION: Right pneumothorax. Clamped chest tube. TECHNIQUE: A single frontal view of the chest was obtained. COMPARISON: Chest single view at 8:00 AM. FINDINGS: There is a small right apical pneumothorax. There is a right-sided chest tube with proximal hole outside the pleura. No pleural effusion or pneumonia. The heart size is normal. Pneumomediastin um is noted. There is soft tissue gas in the bilateral neck and right chest wall. IMPRESSION: 1. Stable small right apical pneumothorax. Right-sided chest tube unchanged in position with proximal hole outside the pleura. 2. Persistent pneumomediastinum. Reviewed, dictated and finalized at location A. MATIC GRINDING MACHINE OPERATOR
--- NOTE | ~2021-10-21 | CT_ITS ---
EXAMINATION: CT chest tube placement w [facility] DATE: 10/27/2021 16:39 INDICATION: Recurring right apical pneumothorax. TECHNIQUE: The procedure including the risks, benefits, and alternatives was discussed with the patie nt. Risks discussed included bleeding and infection. The patient understood the risks and benefits an d agreed to proceed. The skin overlying the right chest was prepped and draped in usual sterile fash ion. Anesthetic was administered with 1% lidocaine subcutaneously. An 18 gauge trochar needle was in serted into the right pleural space with CT guidance. The needle was exchanged over a wire for 6 Fren ch and 8 Chadian dilators and then for an 8.5 Chadian pigtail catheter. The catheter was stitched to th e skin, and a sterile dressing was applied. A one-way valve was attached to the catheter. The mA was adjusted according to patient size. Iterative reconstruction technique was employed. The dose-length product was 325.50 mGy-cm. There were no immediate complications. FINDINGS: CT images demonstrate the catheter within the right pneumothorax anterior to the lung. Ther e is a small right pleural effusion. There is moderate emphysema. Pneumomediastinum is noted. There i s gas in the chest wall, right worse than left. IMPRESSION: 1. Successful CT-guided right chest tube placement. A one-way valve was attached to the catheter. Sma ll right hydropneumothorax present at the end of the procedure. 2. Pneumomediastinum again seen. 3. Moderate emphysema. 4. Subcutaneous emphysema again seen, right worse than left. Reviewed, dictated and finalized at location A. FRIDAY IMPRESSION: 1. Successful CT-guided right chest tube placement. A one-way valve was bridge attacher d to the catheter. Small right hydropneumothorax present at the end of the proc edure. 2. Pneumomediastinum again seen. 3. Moderate emphysema. 4. Subcutaneous emphysema again seen, right worse than left.
--- NOTE | ~2021-10-21 | XR_ITS ---
EXAMINATION: XR chest 2V DATE: 10/27/2021 10:06 INDICATION: Right pneumothorax. TECHNIQUE: Frontal and lateral views of the chest were obtained. COMPARISON: Chest single view 10/26/2021 FINDINGS: There is a moderate-sized right pneumothorax. There is mild atelectasis at left lung base. No pleural effusion. The heart size is normal. Pneumomediastinum is noted. There is soft tissue gas i n the neck and right chest wall. Surgical clips in the right upper quadrant are likely from cholecyst ectomy. IMPRESSION: 1. Worsened moderate-sized right pneumothorax. 2. Mild atelectasis at left lung base. 3. Persistent pneumomediastinum. Reviewed, dictated and finalized at location A. SHIFTER
--- NOTE | ~2021-10-21 | XR_ITS ---
EXAMINATION: XR chest 1V portable DATE: 10/21/2021 20:25 INDICATION: Pneumothorax TECHNIQUE: frontal view of the chest was obtained. COMPARISON: Chest radiograph dated 10/21/2021 at 10:10 AM FINDINGS: Interval increase in size of a moderate-sized right pneumothorax with separation of the pleural tima ns at the right upper lung zone increasing from 1.3 cm to currently 3.8 cm. The pneumothorax now seen extending laterally along the partially collapsed right lung all the way to the costophrenic angle. A right-sided chest tube can be seen but it appears to curve cephalad along the lateral margin of the ribs not definitively intrapleural. There is a large amount of soft tissue gas in the right chest wa ll extending into the bilateral base of the neck. There is also suggestion of some pneumomediastinum. No left-sided pneumothorax. No pleural effusion. Mild streaky left basilar atelectasis. Heart size i s normal. IMPRESSION: 1. Interval increase in size of a now moderate right pneumothorax with the right chest tube appearing to remain external to the pleural cavity on the lateral right chest wall. Consider replacement of th e chest tube. Findings were discussed with Katherine Beckwith, the nurse caring for the patient, at 8:4 5 PM. 2. Partial collapse of the right lung and mild left basilar atelectasis. 3. Suggestion of some pneumomediastinum. Reviewed, dictated and finalized at [facility]. CIATE PROFESSOR OF MANAGEMENT IMPRESSION: 1. Interval increase in size of a now moderate right pneumothorax with the righ t chest tube appearing to remain external to the pleural cavity on the lateral right chest wall. Consider replacement of the chest tube. Findings were discuss ed with Katherine Beckwith, the nurse caring for the patient, at 8:45 PM. 2. Partial collapse of the right lung and mild left basilar atelectasis. 3. Suggestion of some pneumomediastinum.
--- NOTE | ~2021-10-21 | XR_ITS ---
XR chest-chest tube insert/pos DATE: 10/21/2021 10:21 INDICATION: Chest tube placement TECHNIQUE: Portable AP chest on 10/21/2021 at 1010 hours COMPARISON: 10/21/2021 portable AP chest at 0806 hours FINDINGS: There is considerable improvement of the prominent right pneumothorax since 0806 hours, the right lung apex down approximately 1.5 cm. Extensive subcutaneous emphysema of the right chest wall and bilateral neck areas again noted. Normal heart size. No pleural effusion. IMPRESSION: Considerable improvement of right pneumothorax since earlier this morning Reviewed, dictated and finalized at Location [facility]. Reviewed, dictated and finalized at location A. EL REGISTERED NURSE PACU IMPRESSION: Considerable improvement of right pneumothorax since earlier this m hardeep
--- NOTE | ~2021-10-21 | XR_ITS ---
EXAMINATION: XR chest 1V portable DATE: 10/25/2021 08:45 INDICATION: Right pneumothorax. Chest tube. TECHNIQUE: frontal view of the chest was obtained. COMPARISON: Chest radiograph dated 10/24/2021 FINDINGS: Apically directed right chest tube remains in place. The proximal side-port is extrapleural projectin g over the lateral margin of the ribs. Tiny residual right apical pneumothorax. Extensive soft tissue gas of the right chest wall extending to the axilla and into the base of the neck. No airspace opaci ties, pulmonary edema, pleural effusion or left-sided pneumothorax. Heart size is normal. Small amoun t of pneumomediastinum. Cholecystectomy clips in right upper quadrant. IMPRESSION: 1. Unchanged right chest tube with pneumomediastinum, tiny right pneumothorax and extensive soft tiss ue gas in the right chest wall. Of note the proximal side-port of the chest tube is extrapleural. Reviewed, dictated and finalized at location A. OMER TRAINING SPECIALIST IMPRESSION: 1. Unchanged right chest tube with pneumomediastinum, tiny right pneumothorax a nd extensive soft tissue gas in the right chest wall. Of note the proximal side -port of the chest tube is extrapleural.
--- NOTE | ~2021-10-21 | XR_ITS ---
XR chest 1V portable DATE: 10/21/2021 08:13 INDICATION: Covid infection TECHNIQUE: Portable upright AP chest on 10/21/2021 at 0806 hours COMPARISON: 10/15/2021 portable AP chest FINDINGS: There is greater than 50% pneumothorax of the right lung, substantially increased since . There is prominent increased subcutaneous emphysema of the right chest wall and right neck, also involving left neck and supraclavicular soft tissues. No cardiac or mediastinal shift is evident. There is right lung infiltrate. The left lung is clear. N o pleural effusions are noted. IMPRESSION: Very large right pneumothorax and subcutaneous emphysema of the chest and neck, considera vern increased since 10/15/2021 Right lung infiltrate Reviewed, dictated and finalized at location A. E MILLER HELPER IMPRESSION: Very large right pneumothorax and subcutaneous emphysema of the [address] and neck, considerably increased since 10/15/2021 Right lung infiltrate
--- NOTE | ~2021-10-21 | XR_ITS ---
EXAMINATION: XR chest 2V EXAM DATE: 10/28/2021 07:28 INDICATION: F/U on Rt. pneumothorax. TECHNIQUE: Portable AP frontal chest x-ray was obtained. Comparison is made to prior examination from 10/27/2021. FINDINGS: Interval insertion of a small caliber pigtail chest tube overlying the pleural cavity, with improvement in previously seen pneumothorax. There is still about 8 mm between the pleural reflectio ns at the right apex, small pneumothorax present. Pneumomediastinum and gas within the neck and right axilla. No focal airspace disease. Cardiomediastinal silhouette is normal. There are cholecystectomy clips. IMPRESSION: Small right apical pneumothorax, interval improvement. Reviewed, dictated and finalized at location A. EXAMINER
--- NOTE | ~2021-10-21 | XR_ITS ---
EXAMINATION: XR chest 1V portable DATE: 10/26/2021 08:05 INDICATION: Right pneumothorax. TECHNIQUE: A single frontal view of the chest was obtained. COMPARISON: Chest single view 10/25/2021 FINDINGS: There is a small right apical pneumothorax. Pneumomediastinum is noted. No pleural effusion or pneumonia. The heart size is normal. There is gas in the neck soft tissues and right chest wall. A right-sided chest tube is noted. The proximal hole is outside of the pleura. IMPRESSION: 1. Stable small right pneumothorax. Right-sided chest tube unchanged in position with proximal hole o utside of the pleura. 2. Persistent pneumomediastinum. Reviewed, dictated and finalized at location A. KDOWN MAN IMPRESSION: 1. Stable small right pneumothorax. Right-sided chest tube unchanged in positio n with proximal hole outside of the pleura. 2. Persistent pneumomediastinum.
--- NOTE | ~2021-10-21 | XR_ITS ---
EXAMINATION: XR chest-chest tube insert/pos EXAM DATE: 10/21/2021 22:57 INDICATION: Right-sided chest tube placement for pneumothorax. TECHNIQUE: Portable AP frontal chest x-ray was obtained. Comparison is made to prior examination from earlier on 10/21. FINDINGS: There is been interval advancement of a right-sided chest tube, with tip and side-port pro jecting over the right hemithorax and resolution of previously seen pneumothorax. Some patchy bilateral nonconfluent atelectasis or pneumonia. There are no sizable pleural effusions. Cardiomediastinal silhouette is normal. The bones and soft tissues are unremarkable. IMPRESSION: 1. Right chest tube in position with resolution of pneumothorax 2. Bilateral ill-defined atelectasis an/or pneumonia. Reviewed, dictated and finalized at location A. S ASSISTANT
--- NOTE | ~2021-10-21 | XR_ITS ---
EXAMINATION: XR chest 1V portable EXAM DATE: 10/22/2021 05:53 INDICATION: Right pneumothorax. TECHNIQUE: Portable AP frontal chest x-ray was obtained. Comparison is made to prior examination from 10/21/2021. FINDINGS: There is a right-sided chest tube, has retracted a couple of centimeters with side-port at the level of the thoracic wall. Trace pleural reflection is identified at the apex. Large amount of right axillary gas. Probable pneumomediastinum. Left greater than right ill-defined a telectasis or pneumonia. There are cholecystectomy clips. There are no osseous abnormalities identifi ed. IMPRESSION: 1. Right-sided chest tube, side-port now at thoracic wall, could be safely advanced 3 cm. Trace righ t pneumothorax. 2. Pneumomediastinum. 3. Bilateral atelectasis an/or pneumonia. Reviewed, dictated and finalized at location A. ITION CONSULTANT IMPRESSION: 1. Right-sided chest tube, side-port now at thoracic wall, could be safely adv anced 3 cm. Trace right pneumothorax. 2. Pneumomediastinum. 3. Bilateral atelectasis an/or pneumonia.
--- NOTE | 2021-10-21 08:23 | ED.GENADULT ---
HPI - General Adult General Chief complaint: Unspecified Stated complaint: swelling in chest and neck -covid + Time Seen by Provider: 10/21/21 07:58 Source: patient and RN notes reviewed Mode of arrival: ambulatory Limitations: no limitations History of Present Illness HPI narrative: Patient presents to the ED with swelling the right side of the neck and the right chest with pressure type feeling, started this morning. Patient denies any chest pain or shortness of breath. Patient had pneumothorax, chest tube placement on October 12, got discharged on October 15. Patient had history of coughing for few days prior positive Covid test on October 13. Patient fully vaccinated for COVID, last vaccine was January 2021 Related Data Home Medications Medication Instructions Recorded Confirmed omeprazole 20 mg PO DAILY 10/12/21 10/21/21 Allergies Allergy/AdvReac Type Severity Reaction Status Date / Time brompheniramine Allergy Unknown Hives Verified 10/21/21 07:44 [From Dimetapp (brompheniramine-PPA)] naproxen Allergy Unknown Unconscious Verified 10/21/21 07:44 phenylpropanolamine Allergy Unknown Hives Verified 10/21/21 07:44 [From Dimetapp (brompheniramine-PPA)] Review of Systems Review of Systems: CONSTITUTIONAL: Denies fever, chills, or sweats. EYES: Denies visual changes, redness, or discharge. ENT: Denies rhinorrhea, congestion, sore throat, or otalgia. CARDIOVASCULAR: Denies chest pain, palpitations, or edema. RESPIRATORY: Slight coughing. GASTROINTESTINAL: Denies abdominal pain, nausea, vomiting, or diarrhea. GENITOURINARY: Denies dysuria or hematuria. SKIN: Denies rash or itching. MUSCULOSKELETAL: Denies back pain, joint pain, or myalgia. NEUROLOGIC: Denies headache, numbness, or weakness. PSYCHIATRIC: Denies anxiety or depression. [facility] Past Medical History Medical History (Updated 10/21/21 @ 09:29 by Lucia Stanford MD) GERD without esophagitis History of gastroesophageal reflux (GERD) Tobacco abuse Patient stated he quit smoking since he has been sick the last month and a half Surgical History Surgical History (Updated 10/12/21 @ 21:37 by Leena Carreon NP) H/O skin graft H/O vasectomy Hx of cholecystectomy Family History Family History (Updated 10/12/21 @ 21:38 by Leena Carreon NP) Father Rheumatoid arthritis Social History Social History (Updated 10/12/21 @ 21:39 by Leena Carreon NP) Social History: The patient stated that he quit smoking approximately 6 weeks ago. He is and lives with his who is the durable power banking attorney for healthcare. The patient has 3 children. The patient delivers food to different stores. The patient denies any marijuana or illicit drugs. No alcohol. Code status full code Smoking status: Former smoker Exam Narrative: General appearance: Well-developed, well-nourished Skin: Normal color Head: Normocephalic, nontraumatic Eyes: Clear conjunctiva ENT: Oropharynx normal, ears normal, nose normal Neck: Supple, nontender, subcutaneous emphysema on the right side Chest and respiratory:, no respiratory distress, no accessory muscle use, right cutaneous emphysema of the chest, diminution of air entry Heart: Regular rate/rhythm Abdomen: Soft, nontender, no organomegaly, quiet bowel sounds Vascular: Normal peripheral pulses, normal capillary refill. Musculoskeletal: Normal range of motion, nontender back Neurologic: Alert and oriented ?3, INSURANCE SALES SPECIALIST is normal as tested, no gross motor deficit Course Course Emergency Course: Stable Consultations Consultation #1: DR GOMEZ, Date: 10/21/21 Time: 08:49 Consultation #2: DR LOVETT, thoracic surge
[2021-10-21 08:56] LABS: Alveolar/Arterial O2 Gradient 41.9 mmHg; Base Excess ABG 1.5 mEq/l (+/-2.0); HCO3 ABG 25.2 mEq/l (22.0-26.0); Oxygen Content ABG 25.9 %vol (16.0-22.0); Oxyhemoglobin 92.6 % THb (90.0-100.0); PCO2 ABG 37.5 mmHg (35.0-45.0); PO2 ABG 62.9 mmHg (80.0-100.0); pH ABG 7.445 (7.350-7.450)
[2021-10-21 08:57] LABS: Device ROOM AIR; Fractional Inspired Oxygen 21 %; Modified Allen's Test Pass; Site Drawn RIGHT RADIAL
[2021-10-21] MEDS: HYDROmorphone HCL INJ (*CRX) 1 MG/ML SYR 0.5 MG IV PUSH ×2 (09:35→17:20)
[2021-10-21] MEDS: LORazepam INJ (*CRX) 2 MG/ML VIAL 1 MG IV PUSH (09:35)
--- NOTE | 2021-10-21 10:16 | PC.NURSE ---
chest tube placed in right chest. pt tolerated well. pt coughing intermittently. portable cxr ordered.
--- NOTE | 2021-10-21 13:20 | ADMGEN ---
This patient, Joyce Willett, was admitted to [facility] Surg Room 314-01. Patient/family oriented to hospital policies and general routines including ID bracelet, bed and alarms, visiting hours, pain management, procedures, bathroom and other care routines, personal items, smoking policy, room service/diet, and visiting hours. Information on how to activate the Rapid Response Team has been discussed. Patient/Family are encouraged to report perceived risks to care and to ask questions if they do not understand what they are told or what they should do.
--- NOTE | 2021-10-21 14:30 | PM.IMHP ---
H&P: HPI History of Present Illness Date/Time: 10/21/21 14:30 Chief Complaint: Chest and neck swelling Narrative: Pt is a 41-year-old with a past medical history of GERD with recent diagnosis of COVID and pneumothorax (recently discharged by this hospital on 10/15/21) who presented emergency room for swelling to his chest, arm and neck. Patient states that he has been sleeping on the couch due to his COVID status and slept on his left side for the 1st time. He woke up to significant swelling to his chest, arm and neck. He said he could barely move his arm because of how swollen it was and decided to come to the emergency room. He said he really did have much shortness of breath or dyspnea on exertion. He said his symptoms had pretty much resolved since his hospitalization and he was doing fairly well until he woke up this morning. He still has a lingering cough and feels a little short of breath when he coughs but denies chest pain, lightheadedness, dizziness, diarrhea, constipation or dysuria. He hasn't noticed a fever or feeling of his heart racing. He has no history of blood clots. He is vaccinated against COVID with 2 doses of Pfizer. Review of Systems Review of Systems: All systems reviewed & are unremarkable except as noted in HPI and below PMFSH Past Medical History Medical History (Updated 10/21/21 @ 16:19 by Sandrita Villar PA-C) GERD without esophagitis History of gastroesophageal reflux (GERD) Tobacco abuse Patient stated he quit smoking since he has been sick the last month and a half Surgical History Surgical History (Updated 10/21/21 @ 16:12 by Sandrita Villar PA-C) H/O skin graft right hand H/O vasectomy Hx of cholecystectomy Family History Family History (Updated 10/21/21 @ 13:26 by Noelle Montano RN) Father Rheumatoid arthritis Grandparent Malignant neoplasm of prostate Grandparent COVID Social History Social History (Updated 10/21/21 @ 16:13 by Sandrita Villar PA-C) Social History: The patient stated that he quit smoking approximately 6 weeks ago. He is and lives with his , Shannan, who is the durable power insurance attorney for healthcare. The patient has 3 children. The patient delivers food to different stores. The patient denies any marijuana or illicit drugs. Rarely drinks alcohol. Code status full code Smoking status: Former smoker Alcohol intake: former Substance use: never Spiritual care concerns: No Meds Home Medications and Allergies Home Medications Medication Instructions Recorded Confirmed Type omeprazole 20 mg PO DAILY 10/12/21 10/21/21 History albuterol sulfate [Proventil HFA] 2 puff INHALATION Q6HRT PRN #1 inh 10/15/21 10/21/21 Rx prednisone 20 mg PO DAILY@0800 #7 tablet 10/15/21 10/21/21 Rx Allergies Allergy/AdvReac Type Severity Reaction Status Date / Time brompheniramine Allergy Unknown Hives Verified 10/21/21 13:33 [From Dimetapp (brompheniramine-PPA)] naproxen Allergy Unknown Unconscious Verified 10/21/21 13:33 phenylpropanolamine Allergy Unknown Hives Verified 10/21/21 13:33 [From Dimetapp (brompheniramine-PPA)] Vital Signs Vital Signs - 24 hr 10/21/21 07:39 10/21/21 07:56 10/21/21 07:58 Temperature 97 F L Pulse Rate 116 H 128 H Respiratory Rate 20 23 H Blood Pressure 179/100 H 166/122 H Pulse Oximetry 98 94 10/21/21 08:00 10/21/21 08:01 10/21/21 08:15 Temperature Pulse Rate 125 H 121 H Respiratory Rate 22 H 11 L Blood Pressure 148/110 H Pulse Oximetry 95 97 94 10/21/21 08:16 10/21/21 08:34 10/21/21 08:56 Temperature Pulse Rate 117 H Respiratory Rate 28 H Blood Pressure 171/96 H Pulse Oximetry 94 96 96 10/21/21 09:00 10/21/21 09:01 10/21/21 09:15 Temperature Pulse Rate 121 H Respiratory Rate 23 H Blood Pressure 139/99 H Pulse Oximetry 92 94 93 10/21/21 09:31 10/21/21 09:34 10/21/21 09:45 Temperature Pulse Rate
--- NOTE | 2021-10-21 15:18 | ECG_ITS ---
Measurements Intervals [place] Rate: 140 P: 77 HI: 135 QRS: 112 QRSD: 90 T: 50 QT: 285 QTc: 435 Interpretive Statements SINUS TACHYCARDIA RIGHT AXIS DEVIATION BASELINE ARTIFACT- I, II, AVR, V1 ABNORMAL ECG Electronically Signed On 10-22-2021 16:42:58 CODING COMPLIANCE MANAGER by Srinivas Lee D.O.
[2021-10-21 16:17] LABS: Basophils Percent Auto 0.3 % (0.2-1.2); Eosinophils Absolute Auto 0.1 K/mm3 (0-0.3); Eosinophils Percent Auto 0.3 % (0-4.4); Hematocrit 56.2 % (42.0-52.0); Hemoglobin 19.3 g/dL (14.0-18.0); Immature Granulocyte Absolute 0.05 K/mm3 (0.00-0.031); Immature Granulocyte Percent A 0.3 % (0-0.5); Lymphocytes Absolute Auto 1.22 K/mm3 (0.9-3.2); Lymphocytes Percent Auto 8.4 % (18.3-44.2); Mean Corpuscular HGB Conc 34.3 g/dl (32-36); Mean Corpuscular Hemoglobin 30.6 pg (26-34); Mean Corpuscular Volume 89.2 fl (80-100); Mean Platelet Volume 9.5 fl (7.4-10.4); Monocytes Absolute Auto 1.1 K/mm3 (0.1-0.6); Monocytes Percent Auto 7.5 % (2.6-8.5); Neutrophils Absolute Auto 12.2 K/mm3 (1.3-6.7); Neutrophils Percent Auto 83.2 % (45.5-73.1); Platelet Count Result 328 k/mm3 (150-375); Red Cell Distribution Width 12.5 % (11.5-14.5); White Blood Count 14.6 K/mm3 (4.5-10.0)
[2021-10-21 16:30] LABS: Alanine Aminotransferase 76 U/L (4-50); Albumin Level 4.3 g/dL (3.5-5.1); Alkaline Phosphatase 62 U/L (38-126); Anion Gap 6 mmol/L (8-16); Aspartate Amino Transferase 52 U/L (17-59); Bilirubin,Total 0.9 mg/dL (0.2-1.3); Blood Urea Nitrogen 12 mg/dL (9-20); Carbon Dioxide 29 mmol/L (22-30); Chloride 99 mmol/L (98-107); Estimated CRCL calculation 99 ml/min; Estimated Glomerular Filt Rate > 60; Glucose 121 mg/dL (65-110); Potassium 4.3 mmol/L (3.4-5.0); Sodium 134 mmol/L (137-145)
[2021-10-21 16:30] LABS: D Dimer 0.59 ug/mL (<0.48)
[2021-10-21 16:34] LABS: CRP 2.7 mg/dL (<1.0)
[2021-10-21] MEDS: MORPHINE SULFATE (*CRX) 2 MG/ML INJ IV PUSH (21:09)
[2021-10-21] MEDS: METOPROLOL TARTRATE 25 MG TABLET PO (21:24)
[2021-10-21] MEDS: ENOXAPARIN 40 MG/0.4 ML SYRINGE SUB-Q (21:24)
[2021-10-21] MEDS: METOPROLOL TARTRATE INJ 5 MG/5 ML VIAL IV PUSH (22:03)
--- NOTE | 2021-10-21 22:57 | PM.CNGS ---
Assessment and Plan Assessment and plan (1) Pneumothorax: Qualifiers: Pneumothorax type: spontaneous, primary Qualified Code(s): J93.11 - Primary spontaneous pneumothorax Code(s): J93.9 - Pneumothorax, unspecified Status: Acute Assessment and Plan: I have reviewed the imaging of the prior hospital visit as well as the x-rays from this morning. Patient has a recurrent right pneumothorax. Right chest tube was attempted by the ED physician but appears to been placed very shallowly and does not appear to be within the pleural cavity any more. Will have to remove the current chest tube and place a new chest tube. I have discussed with the patient and he is agreeable to proceeding. (2) COVID-19: Code(s): U07.1 - COVID-19 Status: Acute History of Present Illness Consult details Consult date: 10/21/21 Reason for consult: other (Right pneumothorax) Requesting physician: Lucia Stanford MD Narrative: This is a 41-year-old man who presented to the emergency department today with worsening shortness of breath. He was just recently hospitalized for a pneumothorax and had chest tube placed on the right side at that time. The chest tube allowed most of the pneumothorax to resolve and chest tube was eventually removed and he was discharged home. He then presented back to the emergency department this morning with recurrent symptoms. A large recurrent pneumothorax was identified. Chest tube was placed by the ED physician, but since then the chest tube has migrated out of the pleural cavity and repeat chest x-ray this evening shows reaccumulation of pneumothorax. He was also becoming tachycardic and hypoxic. I was called in to evaluate the patient and replace a chest tube urgently. The patient did have a recent positive COVID test. He does have a prior history of smoking but has quit. He has no other prior history of lung problems. Review of Systems Review of Systems: All systems reviewed & are unremarkable except as noted in HPI and below Eyes: Eyes: Denies change in vision ENT: Denies hearing loss, Denies neck pain and Denies sore throat Cardiovascular: Cardiovascular: Denies chest pain and Denies dyspnea Respiratory: Respiratory: Denies cough, Reports pain on inspiration, Reports dyspnea and Denies wheezing Gastrointestinal: Gastrointestinal: Denies diarrhea, Denies nausea and Denies vomiting Genitourinary: Genitourinary: Denies hematuria and Denies dysuria Musculoskeletal: Musculoskeletal: Denies arthralgias, Denies joint swelling and Denies neck pain Allergic/Immunologic: Allergic/Immunologic: Denies wheezing PMFSH Past Medical History Medical History GERD without esophagitis History of gastroesophageal reflux (GERD) Tobacco abuse Patient stated he quit smoking since he has been sick the last month and a half Surgical History Surgical History H/O skin graft right hand H/O vasectomy Hx of cholecystectomy Family History Family History Father Rheumatoid arthritis Grandparent Malignant neoplasm of prostate Grandparent COVID Social History Social History Social History: The patient stated that he quit smoking approximately 6 weeks ago. He is and lives with his , Shannan, who is the durable power corporate specialist for healthcare. The patient has 3 children. The patient delivers food to different stores. The patient denies any marijuana or illicit drugs. Rarely drinks alcohol. Code status full code Smoking status: Former smoker Alcohol intake: former Substance use: never Spiritual care concerns: No Meds Home Medications and Allergies Home Medications Medication Instructions Recorded Confirmed Type omeprazole 20 mg PO DA
--- NOTE | 2021-10-21 23:03 | W.PM.PROC2 ---
Procedure Note - Detailed Date of Procedure 10/21/21 Pre-op Diagnosis Right pneumothorax, recent COVID infection Post-op Diagnosis same Procedure Performed Right chest tube placement Surgeon Mat Giang, DO Anesthesia local (1% lidocaine with epinephrine) Indications This is a 41-year-old man who presented to the emergency department today with recurrent right pneumothorax. He had presented 1 week ago with a right pneumothorax which was treated with chest tube placement. Chest tube had been removed and he was discharged home. He now has recurrent pneumothorax and chest tube was placed again in the emergency department. This appeared to be placed very shallow and eventually worked its way out of the pleural cavity. He is now in need of replacement of the right chest tube. Findings A 28 Belarusian right chest tube was placed. A gush of air was released once entering into the pleural cavity. Chest tube was directed in an anterior cephalad direction and was secured in place around 10-12 cm at the skin. Patient tolerated procedure well and vitals remained stable after placement. Description of Procedure Patient was placed supine in his hospital bed with his right arm above his head. His right chest area was prepped and draped in sterile fashion using chlorhexidine prep. The previous chest tube that was now only sitting within the subcutaneous space was removed. 1% lidocaine with epinephrine was infiltrated locally around the skin as well as deep into the intercostal space. A 3 cm incision was made in the anterior axillary line using a 15 blade scalpel. Careful blunt dissection was performed using a curved hemostat. The 6th rib was then identified and the hemostat was advanced just superior to the rib and into the intercostal space. Careful blunt dissection was carried out all the way into the pleural cavity. A gush of air was released and then the 28 Belarusian chest tube was advanced in a cephalad anterior direction. It was then secured in place using an 0 silk suture. The chest tube was placed to -20 cm water suction with the Pleur-Evac. Vaseline gauze was then applied around the chest tube followed by 4 x 4 gauze and Medipore tape. Patient was then sat up in bed and chest x-ray was ordered to confirm placement. Patient tolerated procedure well. Implants 28 Fr chest tube Estimated Blood Loss 5 Urine Output 375 Complications No immediate complications Condition stable Disposition floor
[2021-10-21] MEDS: LIDO 1%/EPINEPHRINE 1:100,000 20 ML VIAL ×2 (23:06)
[2021-10-22] VITALS (9 sets, daily range): BP systolic 112–153; BP diastolic 72–90; PULSE 86–129; RESP 18–22; TEMP 36.6–37.7; O2SAT 92–98
--- NOTE | 2021-10-22 00:53 | PC.NURSE ---
RN found wall suction set on intermittent suction. Changed to continuous with sonometer at [address] appropriately[address] Woods and Dr. Giang notified; included in call to providers, elevated heart rate in the 150's continually was noted. Chest Xray ordered identifying the chest tube was not in correct position. Orders received to administer 25mg metoprolol x1 PO. Additional order received to administer 5mg metoprolol IVP x1. Dr. Giang arrived on site to place a new chest tube, placement confirmed via xray.
[2021-10-22] MEDS: HYDROmorphone HCL INJ (*CRX) 1 MG/ML SYR 0.5 MG IV PUSH ×5 (01:48→19:44)
[2021-10-22 06:29] LABS: Hematocrit 54.2 % (42.0-52.0); Hemoglobin 18.8 g/dL (14.0-18.0); Mean Corpuscular HGB Conc 34.7 g/dl (32-36); Mean Corpuscular Hemoglobin 30.9 pg (26-34); Mean Corpuscular Volume 89.1 fl (80-100); Mean Platelet Volume 9.7 fl (7.4-10.4); Platelet Count Result 284 k/mm3 (150-375); Red Blood Count 6.08 M/mm3 (4.6-6.20); Red Cell Distribution Width 12.6 % (11.5-14.5)
[2021-10-22 06:40] LABS: Alanine Aminotransferase 78 U/L (4-50); Albumin Level 3.8 g/dL (3.5-5.1); Alkaline Phosphatase 58 U/L (38-126); Anion Gap 10 mmol/L (8-16); Aspartate Amino Transferase 59 U/L (17-59); Bilirubin,Total 1.1 mg/dL (0.2-1.3); Blood Urea Nitrogen 15 mg/dL (9-20); Calcium 8.9 mg/dL (8.4-10.2); Carbon Dioxide 24 mmol/L (22-30); Chloride 101 mmol/L (98-107); Estimated CRCL calculation 109 ml/min; Estimated Glomerular Filt Rate > 60; Glucose 112 mg/dL (65-110); Potassium 3.8 mmol/L (3.4-5.0); Sodium 135 mmol/L (137-145)
[2021-10-22] MEDS: PANTOPRAZOLE 40 MG TABLET PO (10:06)
[2021-10-22] MEDS: PHENYLEPH/SHARK OIL/MO/PETROL CREAM 26 GM 1 APPLIC RECTAL (10:07)
--- NOTE | 2021-10-22 11:49 | PM.PNGS ---
Progress Note: A&P Assessment and Plan (1) Pneumothorax: Qualifiers: Pneumothorax type: spontaneous, primary Qualified Code(s): J93.11 - Primary spontaneous pneumothorax Code(s): J93.9 - Pneumothorax, unspecified Status: Acute Assessment and Plan: Continue chest tube to suction today, small air leak remains Repeat CXR tomorrow morning. (2) COVID-19: Code(s): U07.1 - COVID-19 Status: Acute Subjective Subjective Date/Time Seen: 10/22/21 11:49 Interval history: Breathing much improved. Only has discomfort from the chest tube. Exam Resp: Effort & Inspection: normal respiratory effort Auscultation: clear to auscultation bilaterally Other: Right chest tube in place with small air leak Objective Data Vital Signs Vital Signs: Vital Signs - 24 hr 10/21/21 13:02 10/21/21 16:00 10/21/21 20:00 Temperature 37.9 C H 37.6 C H 38.1 C H Pulse Rate 149 H 119 H 145 H Respiratory Rate 20 21 H 20 Blood Pressure 147/87 H 103/85 125/66 Pulse Oximetry 93 95 95 10/21/21 21:24 10/21/21 22:03 10/22/21 00:00 Temperature 37.7 C H Pulse Rate 155 H 148 H 124 H Respiratory Rate 22 H Blood Pressure 112/72 Pulse Oximetry 95 10/22/21 04:00 10/22/21 08:00 Temperature 36.9 C 37.1 C Pulse Rate 104 H 107 H Respiratory Rate 20 20 Blood Pressure 113/82 153/90 H Pulse Oximetry 95 93 Intake/Output Intake/Output: Intake & Output 10/19/21 10/20/21 10/21/21 10/22/21 23:59 23:59 23:59 23:59 Intake Total 222 460 Output Total 750 300 Balance -528 160 Meds/Results Medications: Active Medications Generic Name Dose Route Start Last Admin Trade Name Freq PRN Reason Stop Dose Admin Albuterol 2 puff 10/21/21 14:35 Albuterol Sulfate (*Sp) Aerosol 1 Puff INHALATION Q6HRT PRN Shortness Of Breath Enoxaparin Sodium 40 mg 10/21/21 21:00 10/21/21 21:24 Enoxaparin 40 Mg/0.4 Ml Syringe SUB-Q 40 mg Q24H PEDRITO Administration Hydromorphone HCl 0.5 mg 10/21/21 11:01 10/22/21 10:11 Hydromorphone Hcl Inj (*Crx) 1 Mg/Ml Syr IV PUSH 0.5 mg Q4H PRN Administration Pain Rated 7-10 Ondansetron HCl 4 mg 10/21/21 11:01 Ondansetron Inj 4 Mg/2 Ml Vial IV PUSH Q4H PRN Nausea Pantoprazole Sodium 40 mg 10/22/21 09:00 10/22/21 10:06 Pantoprazole 40 Mg Tablet PO 11/21/21 08:59 40 mg DAILY PEDRITO Administration Phenyleph/Shark Oil/Min Oil/Petrol 1 applic 10/22/21 09:00 10/22/21 10:07 Phenyleph/Shark Oil/Mo/Petrol Cream 26 Gm RECTAL 1 applic DAILY PEDRITO Administration Radiology Results: ITS Impressions Chest X-Ray 10/22/21 07:11 IMPRESSION: 1. Right chest tube in position with resolution of pneumothorax 2. Bilateral ill-defined atelectasis an/or pneumonia. Labs Labs: Laboratory Results - last 24 hr 10/21/21 10/21/21 10/21/21 16:07 16:08 16:08 WBC 14.6 H RBC 6.30 H Hgb 19.3 H Hct 56.2 H MCV 89.2 MCH 30.6 MCHC 34.3 RDW 12.5 Plt Count 328 MPV 9.5 Immature Gran % (Auto) 0.3 Neut % (Auto) 83.2 H Lymph % (Auto) 8.4 L [place] % (Auto) 7.5 Eos % (Auto) 0.3 Baso % (Auto) 0.3 Lymph # (Auto) 1.22 [place] # (Auto) 1.1 H Eos # (Auto) 0.1 Baso # (Auto) 0.0 Abs Immat Gran (auto) 0.05 H Absolute Neuts (auto) 12.2 H Absolute Nucleated RBC 0.0 Nucleated RBC % 0.0 D-Dimer 0.59 H Sodium Potassium Chloride Carbon Dioxide Anion Gap BUN Creatinine Estim Creat Clear Calc Estimated GFR Glucose Calcium Total Bilirubin AST ALT Alkaline Phosphatase C-Reactive Protein 2.7 H Total Protein Albumin 10/21/21 10/22/21 10/22/21 16:08 06:15 06:15 WBC 12.0 H RBC 6.08 Hgb 18.8 H Hct 54.2 H MCV 89.1 MCH 30.9 MCHC 34.7 RDW 12.6 Plt Count 284 MPV 9.7 Immature Gran % (Auto) Neut % (Auto) Lymph % (Auto) [place] % (Auto) Eos % (Au
--- NOTE | 2021-10-22 14:19 | PM.IMPN ---
Progress Note: A&P Assessment and Plan (1) Pneumothorax: Qualifiers: Pneumothorax type: spontaneous, primary Qualified Code(s): J93.11 - Primary spontaneous pneumothorax Code(s): J93.9 - Pneumothorax, unspecified Status: Acute Assessment and Plan: Chest tube placed in ER 10/21/21 and again by the surgeon 10/21/21 with improvement of his CXR -He previously had a pneumothorax 10/12/21 with chest tube placement at that time as well. -ER physician spoke with Dr. Johnson at [facility] who did not recommend thoracic sx consult at this time but if it were to happen again, may reconsider. No need for transfer -General sx consulted -He has good heart sounds and is not requiring o2, no evidence of tension pneumothorax. (2) SIRS (systemic inflammatory response syndrome): Code(s): R65.10 - Systemic inflammatory response syndrome (SIRS) of non-infectious origin without acute organ dysfunction Status: Acute Assessment and Plan: Resolved. Originally the Pt was febrile at had a pulse of 149 -likely due to pneumothorax as this resolved with chest tube and pain medications -no pna on CXR. No symptoms of UTI, abdominal infection, meningitis, or any other bacterial infection at this time. (3) COVID-19: Code(s): U07.1 - COVID-19 Status: Acute Assessment and Plan: Tested positive 10/13/21 but had symptoms a few days prior -vaccinated with 2 doses of the pfizer vaccine -no evidence of worsening PNA on CXR and on no o2. No indication for Remdesivir or Decadron at this time -suspect this is the cause of his fever -continue isolation -d-dimer mildly elevated in the past likey due to COVID. Pts symptoms improved with chest tube placement. No indication for CTA at this time (4) GERD without esophagitis: Code(s): K21.9 - Gastro-esophageal reflux disease without esophagitis Status: Chronic Assessment and Plan: Chronic -Continue PPI therapy (5) Tachycardia: Code(s): R00.0 - Tachycardia, unspecified Status: Acute Assessment and Plan: Resolved. Likely due to pain and pneumothorax -continue telemetry -pt has no CP or signs of CHF on exam -monitor (6) Polycythemia: Code(s): D75.1 - Secondary polycythemia Status: Acute Assessment and Plan: Noted on labs but has been persistent, doubt due to dehydration -will order EPO, Sven cascade, and ferritin -may need to follow up with Hematology Subjective Date/time seen: 10/22/21 14:19 Interval history: Patient is a 41-year-old male here for pneumothorax with COVID. Patient was seen today and feeling much better. He still is sore near the chest tube but the swelling in his arm and neck is better. He is been able to eat and drink okay with no diarrhea or constipation. He has no chest pain or shortness of breath. Exam Narrative: General:Well developed well nourished patient HEENT: Normocephalic, Neck: swelling to the right side of his neck without erythema. crepitus noted Resp: decreased breath sounds bilaterally and worse on the right lung. No conversational dyspnea or elevated respiratory rate. Heart: Regular rate and and rhythm today. Telemetry shows normal sinus rhythm Abd: Soft, nontender. No pain to palpation. Positive bowel sounds Skin: Warm and dry Extremities: No swelling, erythema or pain to palpation to lower extremity. Right arm seems more swollen but without pain or erythema. crepitus noted Neuro: Alert and Oriented x4 . CN 2-12 intact. No focal neurological deficits. Objective Data Vital Signs Vital Signs: Vital Signs - 24 hr 10/21/21 16:00 10/21/21 20:00 10/21/21 21:24 Temperature 99.7 F H 100.5 F H Pulse Rate 119 H 145 H 155 H Respiratory Rate 21 H 20 Blood Pressure 103/85 125/66 Pulse Oximetry 95 95 10/21/21 22:03 10/22/21 00:00 10/22/21 04:00 Temperature 99.9 F H 98.5 F Pulse Rate 148 H 124 H 104 H Respiratory Rat
[2021-10-22] MEDS: ENOXAPARIN 40 MG/0.4 ML SYRINGE SUB-Q (20:41)
[2021-10-23] VITALS (9 sets, daily range): BP systolic 124–132; BP diastolic 69–78; PULSE 76–118; RESP 18–20; TEMP 36.7–37.5; O2SAT 94–97
[2021-10-23] MEDS: HYDROmorphone HCL INJ (*CRX) 1 MG/ML SYR 0.5 MG IV PUSH ×6 (00:01→21:22)
[2021-10-23 06:44] LABS: Basophils Percent Auto 0.4 % (0.2-1.2); Eosinophils Absolute Auto 0.3 K/mm3 (0-0.3); Eosinophils Percent Auto 3.6 % (0-4.4); Hematocrit 50.9 % (42.0-52.0); Hemoglobin 17.8 g/dL (14.0-18.0); Immature Granulocyte Absolute 0.03 K/mm3 (0.00-0.031); Immature Granulocyte Percent A 0.3 % (0-0.5); Lymphocytes Absolute Auto 1.98 K/mm3 (0.9-3.2); Lymphocytes Percent Auto 21.2 % (18.3-44.2); Mean Corpuscular Hemoglobin 30.7 pg (26-34); Mean Corpuscular Volume 87.9 fl (80-100); Monocytes Absolute Auto 0.7 K/mm3 (0.1-0.6); Monocytes Percent Auto 7.4 % (2.6-8.5); Neutrophils Absolute Auto 6.3 K/mm3 (1.3-6.7); Neutrophils Percent Auto 67.1 % (45.5-73.1); Platelet Count Result 250 k/mm3 (150-375); Red Blood Count 5.79 M/mm3 (4.6-6.20); Red Cell Distribution Width 12.3 % (11.5-14.5); White Blood Count 9.3 K/mm3 (4.5-10.0)
[2021-10-23 07:02] LABS: Alanine Aminotransferase 89 U/L (4-50); Albumin Level 3.5 g/dL (3.5-5.1); Alkaline Phosphatase 57 U/L (38-126); Anion Gap 5 mmol/L (8-16); Aspartate Amino Transferase 57 U/L (17-59); Bilirubin,Total 1.2 mg/dL (0.2-1.3); Blood Urea Nitrogen 10 mg/dL (9-20); Calcium 8.4 mg/dL (8.4-10.2); Carbon Dioxide 26 mmol/L (22-30); Chloride 99 mmol/L (98-107); Estimated CRCL calculation 121 ml/min; Estimated Glomerular Filt Rate > 60; Glucose 105 mg/dL (65-110); Potassium 3.8 mmol/L (3.4-5.0); Sodium 130 mmol/L (137-145)
[2021-10-23] MEDS: PHENYLEPH/SHARK OIL/MO/PETROL CREAM 26 GM 1 APPLIC RECTAL (08:44)
[2021-10-23] MEDS: PANTOPRAZOLE 40 MG TABLET PO (08:44)
--- NOTE | 2021-10-23 12:25 | PM.PNGS ---
Progress Note: A&P Assessment and Plan (1) Pneumothorax: Qualifiers: Pneumothorax type: spontaneous, primary Qualified Code(s): J93.11 - Primary spontaneous pneumothorax Code(s): J93.9 - Pneumothorax, unspecified Status: Acute Assessment and Plan: Continue chest tube to suction today, small air leak remains Repeat CXR tomorrow morning. (2) COVID-19: Code(s): U07.1 - COVID-19 Status: Acute Additional Plan I have discussed the patient's case and plan of care with Dr. Giang. Subjective Subjective Date/Time Seen: 10/23/21 10:25 Patient reports: no new complaints and afebrile Interval history: 41 yo M who presented with a right pneumothorax after being diagnosed and hospitalized with COVID. He has had a chest tube placed in ER and this chest tube had to be replaced with another larger chest tube by Dr. Giang on 10/21/21. Patient seen and examined today. No shortness of breath or new complaints. Review of Systems Respiratory: Respiratory: Reports no additional respiratory complaints, Denies dyspnea and Denies wheezing Exam Const: General: alert; No acute distress Orientation/consciousness: patient oriented x3 Resp: Auscultation: clear to auscultation bilaterally Other: Right chest tube in place with small air leak Cardio: Rate: regular rate Rhythm: regular rhythm Skin: General skin exam: normal color Objective Data Vital Signs Vital Signs: Vital Signs - 24 hr 10/22/21 16:00 10/22/21 18:09 10/22/21 20:00 Temperature 99.8 F H 97.8 F 99.0 F Pulse Rate 100 122 H Respiratory Rate 18 18 Blood Pressure 141/81 H 133/80 Pulse Oximetry 92 98 10/22/21 21:37 10/22/21 23:29 10/23/21 00:00 Temperature 99.3 F Pulse Rate 129 H 113 H 118 H Respiratory Rate 20 Blood Pressure 137/72 Pulse Oximetry 97 10/23/21 03:58 10/23/21 04:00 10/23/21 08:00 Temperature 98.0 F Pulse Rate 102 H 113 H 111 H Respiratory Rate 20 Blood Pressure 132/78 Pulse Oximetry 97 Intake/Output Intake/Output: Intake & Output 10/20/21 10/21/21 10/22/21 10/23/21 23:59 23:59 23:59 23:59 Intake Total 222 1340 730 Output Total 774 725 8993 Balance -528 026 -878 Meds/Results Medications: Active Medications Generic Name Dose Route Start Last Admin Trade Name Freq PRN Reason Stop Dose Admin Albuterol 2 puff 10/21/21 14:35 Albuterol Sulfate (*Sp) Aerosol 1 Puff INHALATION Q6HRT PRN Shortness Of Breath Enoxaparin Sodium 40 mg 10/21/21 21:00 10/22/21 20:41 Enoxaparin 40 Mg/0.4 Ml Syringe SUB-Q 40 mg Q24H PEDRITO Administration Hydromorphone HCl 0.5 mg 10/21/21 11:01 10/23/21 08:43 Hydromorphone Hcl Inj (*Crx) 1 Mg/Ml Syr IV PUSH 0.5 mg Q4H PRN Administration Pain Rated 7-10 Ondansetron HCl 4 mg 10/21/21 11:01 Ondansetron Inj 4 Mg/2 Ml Vial IV PUSH Q4H PRN Nausea Pantoprazole Sodium 40 mg 10/22/21 09:00 10/23/21 08:44 Pantoprazole 40 Mg Tablet PO 11/21/21 08:59 40 mg DAILY PEDRITO Administration Phenyleph/Shark Oil/Min Oil/Petrol 1 applic 10/22/21 09:00 10/23/21 08:44 Phenyleph/Shark Oil/Mo/Petrol Cream 26 Gm RECTAL 1 applic DAILY PEDRITO Administration Radiology Results: ITS Impressions Chest X-Ray 10/23/21 07:21 IMPRESSION: 1. Chest tube side port just outside of thoracic wall, but tiny right apical pneumothorax is stable. 2. Small amount of bilateral atelectasis or pneumonia. 3. Pneumomediastinum. Labs Labs: Laboratory Results - last 24 hr 10/23/21 10/23/21 10/23/21 06:16 06:16 06:16 WBC 9.3 RBC 5.79 Hgb 17.8 Hct 50.9 MCV 87.9 MCH 30.7 MCHC 35.0 RDW 12.3 Plt Count 250 MPV 10.0 Immature Gran % (Auto) 0.3 Neut % (Auto) 67.1 Lymph % (Auto) 21.2 [place] % (Auto) 7.4 Eos % (Auto) 3.6 Baso % (Auto) 0.4 Lymph # (Auto) 1.98 [place] # (Auto) 0.7 H Eos # (Auto) 0.3 Baso # (Auto) 0.0 Abs Immat Gr
[2021-10-23] MEDS: HYDROcodone/acetaminophen (*CRX) 7.5-325 MG TABLET 1 TAB PO ×2 (14:15→18:27)
--- NOTE | 2021-10-23 14:50 | PM.IMPN ---
Progress Note: A&P Assessment and Plan (1) Pneumothorax: Qualifiers: Pneumothorax type: spontaneous, primary Qualified Code(s): J93.11 - Primary spontaneous pneumothorax Code(s): J93.9 - Pneumothorax, unspecified Status: Acute Assessment and Plan: Chest tube placed in ER 10/21/21 and again by the surgeon 10/21/21 with improvement of his CXR. It was advanced slightly again today. -He previously had a pneumothorax 10/12/21 with chest tube placement at that time as well. -ER physician spoke with Dr. Johnson at [facility] who did not recommend thoracic sx consult at this time but if it were to happen again, may reconsider. No need for transfer -General sx consulted -He has good heart sounds and is not requiring o2, no evidence of tension pneumothorax. (2) SIRS (systemic inflammatory response syndrome): Code(s): R65.10 - Systemic inflammatory response syndrome (SIRS) of non-infectious origin without acute organ dysfunction Status: Acute Assessment and Plan: Resolved. Originally the Pt was febrile and had a pulse of 149 -likely due to pneumothorax as this resolved with chest tube and pain medications -no pna on CXR. No symptoms of UTI, abdominal infection, meningitis, or any other bacterial infection at this time. (3) COVID-19: Code(s): U07.1 - COVID-19 Status: Acute Assessment and Plan: Tested positive 10/13/21 but had symptoms a few days prior -vaccinated with 2 doses of the pfizer vaccine -no evidence of worsening PNA on CXR and on no o2. No indication for Remdesivir or Decadron at this time -suspect this is the cause of his fever -continue isolation -d-dimer mildly elevated in the past likey due to COVID. Pts symptoms improved with chest tube placement. No indication for CTA at this time (4) GERD without esophagitis: Code(s): K21.9 - Gastro-esophageal reflux disease without esophagitis Status: Chronic Assessment and Plan: Chronic -Continue PPI therapy (5) Tachycardia: Code(s): R00.0 - Tachycardia, unspecified Status: Acute Assessment and Plan: Intermittent, likely due to pain and pneumothorax -continue telemetry -pt has no CP or signs of CHF on exam -monitor (6) Polycythemia: Code(s): D75.1 - Secondary polycythemia Status: Acute Assessment and Plan: Noted on labs but has been persistent, doubt due to dehydration - EPO, Sven cascade, and ferritin ordered -may need to follow up with Hematology (7) Hyponatremia: Code(s): E87.1 - Hypo-osmolality and hyponatremia Status: Acute Assessment and Plan: sodium 130, could be due to pain -pt appears euvolemic -monitor with daily labs Subjective Date/time seen: 10/23/21 14:50 Interval history: Patient is a 41-year-old male here for pneumothorax with COVID. Patient was seen today and feeling much better. He still is sore near the chest tube but the swelling in his arm and neck is better. He is been able to eat and drink okay with no diarrhea but feels constipated. He has no chest pain or shortness of breath. Overall he is feeling much better. Exam Narrative: General:Well developed well nourished patient HEENT: Normocephalic Neck: swelling to the right side of his neck without erythema (much improved) Resp: decreased breath sounds bilaterally and worse on the right lung. No conversational dyspnea or elevated respiratory rate. Heart: Slight tachycardic today which appears to be sinus tach on Telemetry Abd: Soft, nontender. No pain to palpation. Positive bowel sounds Skin: Warm and dry Extremities: No swelling, erythema or pain to palpation to lower extremity. Right arm seems more swollen but without pain or erythema. crepitus noted Neuro: Alert and Oriented x4 . CN 2-12 intact. No focal neurological deficits. Objective Data Vital Signs Vital Signs: Vital Signs - 24 hr 10/22/21 16:00 10/22/21
[2021-10-23] MEDS: polyethylene glycoL 3350 17 GM POWD.PACK PO (16:30)
[2021-10-23] MEDS: ENOXAPARIN 40 MG/0.4 ML SYRINGE SUB-Q (20:31)
[2021-10-24] VITALS (8 sets, daily range): BP systolic 109–136; BP diastolic 69–89; PULSE 84–128; RESP 16–114; TEMP 36.2–37.3; O2SAT 20–98
[2021-10-24] MEDS: HYDROmorphone HCL INJ (*CRX) 1 MG/ML SYR 0.5 MG IV PUSH ×4 (03:43→18:14)
--- NOTE | 2021-10-24 06:50 | PM.IMPN ---
Progress Note: A&P Assessment and Plan (1) Pneumothorax: Qualifiers: Pneumothorax type: spontaneous, primary Qualified Code(s): J93.11 - Primary spontaneous pneumothorax Code(s): J93.9 - Pneumothorax, unspecified Status: Acute Assessment and Plan: Chest tube placed in ER 10/21/21 and again by the surgeon 10/21/21 with improvement of his CXR and symptoms -He previously had a pneumothorax 10/12/21 with chest tube placement at that time as well. -ER physician spoke with Dr. Johnson at [facility] who did not recommend thoracic sx consult at this time but if it were to happen again, may reconsider. No need for transfer -General sx consulted, plan for water seal today and see how he does -He has good heart sounds and is not requiring o2, no evidence of tension pneumothorax. (2) SIRS (systemic inflammatory response syndrome): Code(s): R65.10 - Systemic inflammatory response syndrome (SIRS) of non-infectious origin without acute organ dysfunction Status: Acute Assessment and Plan: Resolved. Originally the pt was febrile and had a pulse of 149 -likely due to pneumothorax as this resolved with chest tube and pain medications -no pna on CXR. No symptoms of UTI, abdominal infection, meningitis, or any other bacterial infection at this time. (3) COVID-19: Code(s): U07.1 - COVID-19 Status: Acute Assessment and Plan: Tested positive 10/13/21 but had symptoms a few days prior -vaccinated with 2 doses of the pfizer vaccine -no evidence of worsening PNA on CXR and on no o2. No indication for Remdesivir or Decadron at this time -d-dimer mildly elevated in the past likey due to COVID. Pts symptoms improved with chest tube placement. He has absolutely no hypoxia or shortness of breath. No indication for CTA at this time as PE seems less likely (4) GERD without esophagitis: Code(s): K21.9 - Gastro-esophageal reflux disease without esophagitis Status: Chronic Assessment and Plan: Chronic -Continue PPI therapy (5) Tachycardia: Code(s): R00.0 - Tachycardia, unspecified Status: Acute Assessment and Plan: Intermittent and resolved as of this morning, likely due to pain and pneumothorax -will discontinue telemetry -pt has no CP or signs of CHF on exam -monitor (6) Polycythemia: Code(s): D75.1 - Secondary polycythemia Status: Acute Assessment and Plan: Noted on labs but has been persistent, doubt due to dehydration - EPO and Sven cascade pending -may need to follow up with Hematology (7) Hyponatremia: Code(s): E87.1 - Hypo-osmolality and hyponatremia Status: Acute Assessment and Plan: sodium 130 yesterday, could be due to pain -pt appears euvolemic -monitor with daily labs, waiting on todays labs Subjective Date/time seen: 10/24/21 06:50 Interval history: Patient is a 41-year-old male here for pneumothorax with COVID. Patient was seen today and feeling much better. He still is sore near the chest tube but the swelling in his arm and neck is better. He is been able to eat and drink okay with no diarrhea but feels constipated. He has no chest pain or shortness of breath. Overall he is feeling much better and we discussed the plan of care. Exam Narrative: General:Well developed well nourished patient HEENT: Normocephalic Neck: Swelling from the right side of the neck improved Resp: Slight decreased breath sounds pretty clear to auscultation today. No conversational dyspnea or elevated respiratory rate. Chest tube in place Heart: Regular rate and rhythm on my exam of 90. Telemetry shows normal sinus rhythm with occasional sinus tachycardia Abd: Soft, nontender. No pain to palpation. Positive bowel sounds Skin: Warm and dry Extremities: No swelling, erythema or pain to palpation to lower extremity. Right arm seems more swollen but without pain or erythema. crepitus no
[2021-10-24 07:37] LABS: Anion Gap 2 mmol/L (8-16); Blood Urea Nitrogen 12 mg/dL (9-20); Calcium 8.4 mg/dL (8.4-10.2); Carbon Dioxide 31 mmol/L (22-30); Chloride 101 mmol/L (98-107); Estimated CRCL calculation 121 ml/min; Estimated Glomerular Filt Rate > 60; Glucose 103 mg/dL (65-110); Potassium 3.9 mmol/L (3.4-5.0); Sodium 134 mmol/L (137-145)
[2021-10-24] MEDS: PANTOPRAZOLE 40 MG TABLET PO (09:47)
[2021-10-24] MEDS: polyethylene glycoL 3350 17 GM POWD.PACK PO (09:47)
--- NOTE | 2021-10-24 15:49 | PM.PNGS ---
Progress Note: A&P Assessment and Plan (1) Pneumothorax: Qualifiers: Pneumothorax type: spontaneous, primary Qualified Code(s): J93.11 - Primary spontaneous pneumothorax Code(s): J93.9 - Pneumothorax, unspecified Status: Acute Assessment and Plan: Continue chest tube to suction today, small air leak remains Repeat CXR tomorrow morning. We did discuss the possibility of needing transferred to another facility for evaluation by thoracic surgery for possible VATS if he continues to have a pleural leak. (2) COVID-19: Code(s): U07.1 - COVID-19 Status: Acute Additional Plan I have discussed the patient's case and plan of care with Dr. Zhang. Subjective Subjective Date/Time Seen: 10/24/21 15:49 Patient reports: no new complaints Interval history: Patient seen and examined. Denies shortness of breath or any new complaints today. Review of Systems Respiratory: Respiratory: Reports as per HPI and Reports no additional respiratory complaints Exam Const: General: alert; No acute distress Orientation/consciousness: patient oriented x3 Resp: Auscultation: clear to auscultation bilaterally and diminished lung sounds on the right Other: Right chest tube in place with small air leak. Dressing reinforced. Cardio: Rate: regular rate Rhythm: regular rhythm Neuro: General: moves all extremities and no focal motor deficits Extrem: General: normal to inspection Psych: Insight: Good insight present (Psych) Judgement: Good judgement present (Psych) Objective Data Vital Signs Vital Signs: Vital Signs - 24 hr 10/23/21 16:00 10/23/21 20:00 10/23/21 22:00 Temperature 99.5 F 99.5 F Pulse Rate 109 H 76 102 H Respiratory Rate 18 18 Blood Pressure 124/73 124/73 Pulse Oximetry 94 94 10/24/21 00:00 10/24/21 04:00 10/24/21 06:00 Temperature 97.8 F 98.1 F 98.1 F Pulse Rate 87 104 H 104 H Respiratory Rate 16 16 16 Blood Pressure 109/89 119/78 119/78 Pulse Oximetry 98 95 95 10/24/21 08:00 10/24/21 11:59 10/24/21 12:00 Temperature 98.3 F 97.1 F L Pulse Rate 100 102 H 89 Respiratory Rate 20 20 Blood Pressure 136/87 121/69 Pulse Oximetry 95 96 Intake/Output Intake/Output: Intake & Output 10/21/21 10/22/21 10/23/21 10/24/21 23:59 23:59 23:59 23:59 Intake Total 222 1340 2450 1300 Output Total 710 848 1091 Balance -528 540 -160 1300 Meds/Results Medications: Active Medications Generic Name Dose Route Start Last Admin Trade Name Freq PRN Reason Stop Dose Admin Hydrocodone Bitart/Acetaminophen 1 tab 10/23/21 12:40 10/23/21 18:27 Hydrocodone/Acetaminophen (*Crx) 7.5-325 Mg Tablet PO 1 tab Q4H PRN Administration Pain Rated 4-6 Albuterol 2 puff 10/21/21 14:35 Albuterol Sulfate (*Sp) Aerosol 1 Puff INHALATION Q6HRT PRN Shortness Of Breath Enoxaparin Sodium 40 mg 10/21/21 21:00 10/23/21 20:31 Enoxaparin 40 Mg/0.4 Ml Syringe SUB-Q 40 mg Q24H PEDRITO Administration Hydromorphone HCl 0.5 mg 10/21/21 11:01 10/24/21 13:21 Hydromorphone Hcl Inj (*Crx) 1 Mg/Ml Syr IV PUSH 0.5 mg Q4H PRN Administration Pain Rated 7-10 Ondansetron HCl 4 mg 10/21/21 11:01 Ondansetron Inj 4 Mg/2 Ml Vial IV PUSH Q4H PRN Nausea Pantoprazole Sodium 40 mg 10/22/21 09:00 10/24/21 09:47 Pantoprazole 40 Mg Tablet PO 11/21/21 08:59 40 mg DAILY PEDRITO Administration Phenyleph/Shark Oil/Min Oil/Petrol 1 applic 10/22/21 09:00 10/24/21 09:38 Phenyleph/Shark Oil/Mo/Petrol Cream 26 Gm RECTAL Not Given DAILY PEDRITO Polyethylene Glycol 17 gm 10/23/21 12:25 10/24/21 09:47 Polyethylene Glycol 3350 17 Gm Powd.Pack PO 17 gm DAILY PRN Administration Constipation Radiology Results: ITS Impressions Chest X-Ray 10/24/21 07:41 IMPRESSION: 1. Chest tube side port just outside of thoracic wall, stable tiny right apical pneumothorax. 2. Small amount of bilateral atelectasis or pneumonia. 3. Pn
[2021-10-24] MEDS: ENOXAPARIN 40 MG/0.4 ML SYRINGE SUB-Q (20:28)
[2021-10-24] MEDS: HYDROcodone/acetaminophen (*CRX) 7.5-325 MG TABLET 1 TAB PO (20:38)
[2021-10-25] VITALS (8 sets, daily range): BP systolic 106–141; BP diastolic 66–93; PULSE 70–100; RESP 14–18; TEMP 36.1–36.6; O2SAT 95–99
[2021-10-25] MEDS: HYDROcodone/acetaminophen (*CRX) 7.5-325 MG TABLET 1 TAB PO ×3 (01:08→20:52)
[2021-10-25 07:57] LABS: Anion Gap 7 mmol/L (8-16); Blood Urea Nitrogen 10 mg/dL (9-20); Calcium 8.9 mg/dL (8.4-10.2); Carbon Dioxide 32 mmol/L (22-30); Chloride 100 mmol/L (98-107); Estimated CRCL calculation 121 ml/min; Estimated Glomerular Filt Rate > 60; Glucose 104 mg/dL (65-110); Potassium 4.3 mmol/L (3.4-5.0); Sodium 139 mmol/L (137-145)
[2021-10-25 07:58] LABS: Hemoglobin 18.1 g/dL (14.0-18.0); Mean Corpuscular HGB Conc 34.2 g/dl (32-36); Mean Corpuscular Hemoglobin 30.6 pg (26-34); Mean Corpuscular Volume 89.5 fl (80-100); Mean Platelet Volume 10.1 fl (7.4-10.4); Platelet Count Result 233 k/mm3 (150-375); Red Blood Count 5.92 M/mm3 (4.6-6.20); Red Cell Distribution Width 12.3 % (11.5-14.5); White Blood Count 7.9 K/mm3 (4.5-10.0)
[2021-10-25] MEDS: PANTOPRAZOLE 40 MG TABLET PO (09:54)
--- NOTE | 2021-10-25 14:24 | PM.IMPN ---
Progress Note: A&P Assessment and Plan (1) Pneumothorax: Qualifiers: Pneumothorax type: spontaneous, primary Qualified Code(s): J93.11 - Primary spontaneous pneumothorax Code(s): J93.9 - Pneumothorax, unspecified Status: Acute Assessment and Plan: -Chest tube management by surgery team, patient is still having air leak and may need VATS procedure. Will follow guidance from surgical team. -Pain is well controlled, patient is having irritation from the chest tube and anticipate pain will resolve once chest tube is removed -thank: [place] and Dilaudid -bowel regimen: MiraLax -nausea: (2) Hyponatremia: Code(s): E87.1 - Hypo-osmolality and hyponatremia Status: Acute Assessment and Plan: Resolved (3) COVID-19: Code(s): U07.1 - COVID-19 Status: Acute Assessment and Plan: History of recent COVID-19 10/13 resolved. No pneumothorax spontaneous. Patient prednisone on home med list, does not need. (4) Polycythemia: Code(s): D75.1 - Secondary polycythemia Status: Acute Additional Plan # other chronic conditions -GERD: Home Prilosec, on Protonix here Diet: Regular DVT prophylaxis: Lovenox Code status: Full code Disposition: Pending clinical course chest tube Time Spent With Patient Time with patient: 15 - 25 minutes Subjective Date/time seen: 10/25/21 14:24 Patient seen examined. We discussed treatment course for him so far. Has a spontaneous pneumothorax after COVID 19. Patient was 1st started on its manages to which was increased to previous size chest tube, still on suction. Possible water-seal plan and repeat x-rays. If he has persistent air leak he may need VATS procedure higher level care for thoracic surgery. He is asymptomatic today. Only complains of pain when he moves around chest tube. Patient denies fever, chills, nausea vomiting, diarrhea. Does endorse chest pain around chest tube and dyspnea. Review of Systems Review of Systems: All systems reviewed & are unremarkable except as noted in HPI and below Exam Narrative: - GENERAL: Pleasant male no acute distress. Well-nourished. - EYES: EOMI. Anicteric. - HENT: Moist mucous membranes. No scleral icterus. - LUNGS: Clear to auscultation bilaterally, no wheezing, rhonchi, or rales. Chest tube right lung with minor air leak. - CARDIOVASCULAR: Regular rate and rhythm. No murmur. No JVD. - ABDOMEN: Soft, non-tender and non-distended. No palpable masses. - EXTREMITIES: No edema. Peripheral pulses 2+. Non-tender. - NEUROLOGIC: No focal neurological deficits. CN II-XII grossly intact. - PSYCHIATRIC: Awake, Alert and oriented x 3. Appropriate mood and affect. - SKIN: No rashes or lesions. Warm. - LYMPH: No cervical lymphadenopathy. Objective Data Vital Signs Vital Signs: Vital Signs - 24 hr 10/24/21 16:00 10/24/21 20:00 10/25/21 00:00 Temperature 36.9 C 37.3 C 36.1 C L Pulse Rate 105 H 104 H 75 Respiratory Rate 114 H 18 18 Blood Pressure 129/87 134/73 106/66 Pulse Oximetry 20 L 97 96 10/25/21 04:00 10/25/21 08:00 10/25/21 10:00 Temperature 36.1 C L 36.4 C L Pulse Rate 85 95 95 Respiratory Rate 16 16 16 Blood Pressure 117/81 129/84 Pulse Oximetry 99 97 97 Intake/Output Intake/Output: Intake & Output 10/22/21 10/23/21 10/24/21 10/25/21 23:59 23:59 23:59 23:59 Intake Total 1340 2450 1540 1350 Output Total 800 2610 350 800 Balance 540 -160 1190 550 Meds/Results Medications: Active Medications Generic Name Dose Route Start Last Admin Trade Name Freq PRN Reason Stop Dose Admin Hydrocodone Bitart/Acetaminophen 1 tab 10/23/21 12:40 10/25/21 09:53 Hydrocodone/Acetaminophen (*Crx) 7.5-325 Mg Tablet PO 1 tab Q4H PRN Administration Pain Rated 4-6 Albuterol 2 puff 10/21/21 14:35 Albuterol Sulfate (*Sp) Aerosol 1 Puff INHALATION Q6HRT PRN Shortness Of Breath Enoxaparin Sodium 40 mg 10/21/21 21:00 10/24/21 20:28 Enoxapar
--- NOTE | 2021-10-25 15:04 | PM.PNGS ---
Progress Note: A&P Assessment and Plan (1) Pneumothorax: Qualifiers: Pneumothorax type: spontaneous, primary Qualified Code(s): J93.11 - Primary spontaneous pneumothorax Code(s): J93.9 - Pneumothorax, unspecified Status: Acute Assessment and Plan: will place CT to seal, recheck CXR in am, encourage IS Subjective Subjective Date/Time Seen: 10/25/21 15:04 feels good, no c/o SOB, sq crepitus improved Review of Systems Review of Systems: All systems reviewed & are unremarkable except as noted in HPI and below Exam Const: General: cooperative, comfortable and no acute distress Chest: Chest palpation & inspection: normal inspection of the chest Other: R CT - no leak, mild SQ crepitus ext to RUE, R neck Resp: Effort & Inspection: normal respiratory effort Auscultation: clear to auscultation bilaterally Cardio: Rate: regular rate Rhythm: regular rhythm GI: Inspection: normal to inspection Objective Data Vital Signs Vital Signs: Vital Signs - 24 hr 10/24/21 16:00 10/24/21 20:00 10/25/21 00:00 Temperature 36.9 C 37.3 C 36.1 C L Pulse Rate 105 H 104 H 75 Respiratory Rate 114 H 18 18 Blood Pressure 129/87 134/73 106/66 Pulse Oximetry 20 L 97 96 10/25/21 04:00 10/25/21 08:00 10/25/21 10:00 Temperature 36.1 C L 36.4 C L Pulse Rate 85 95 95 Respiratory Rate 16 16 16 Blood Pressure 117/81 129/84 Pulse Oximetry 99 97 97 Intake/Output Intake/Output: Intake & Output 10/22/21 10/23/21 10/24/21 10/25/21 23:59 23:59 23:59 23:59 Intake Total 1340 2450 1540 1350 Output Total 800 2610 350 800 Balance 540 -160 1190 550 Meds/Results Medications: Active Medications Generic Name Dose Route Start Last Admin Trade Name Freq PRN Reason Stop Dose Admin Hydrocodone Bitart/Acetaminophen 1 tab 10/23/21 12:40 10/25/21 09:53 Hydrocodone/Acetaminophen (*Crx) 7.5-325 Mg Tablet PO 1 tab Q4H PRN Administration Pain Rated 4-6 Albuterol 2 puff 10/21/21 14:35 Albuterol Sulfate (*Sp) Aerosol 1 Puff INHALATION Q6HRT PRN Shortness Of Breath Enoxaparin Sodium 40 mg 10/21/21 21:00 10/24/21 20:28 Enoxaparin 40 Mg/0.4 Ml Syringe SUB-Q 40 mg Q24H PEDRITO Administration Hydromorphone HCl 0.5 mg 10/21/21 11:01 10/24/21 18:14 Hydromorphone Hcl Inj (*Crx) 1 Mg/Ml Syr IV PUSH 0.5 mg Q4H PRN Administration Pain Rated 7-10 Ondansetron HCl 4 mg 10/21/21 11:01 Ondansetron Inj 4 Mg/2 Ml Vial IV PUSH Q4H PRN Nausea Pantoprazole Sodium 40 mg 10/22/21 09:00 10/25/21 09:54 Pantoprazole 40 Mg Tablet PO 11/21/21 08:59 40 mg DAILY PEDRITO Administration Phenyleph/Shark Oil/Min Oil/Petrol 1 applic 10/22/21 09:00 10/25/21 09:55 Phenyleph/Shark Oil/Mo/Petrol Cream 26 Gm RECTAL Not Given DAILY PEDRITO Polyethylene Glycol 17 gm 10/23/21 12:25 10/24/21 09:47 Polyethylene Glycol 3350 17 Gm Powd.Pack PO 17 gm DAILY PRN Administration Constipation Radiology Results: ITS Impressions Chest X-Ray 10/25/21 08:58 IMPRESSION: 1. Unchanged right chest tube with pneumomediastinum, tiny right pneumothorax and extensive soft tissue gas in the right chest wall. Of note the proximal side-port of the chest tube is extrapleural. Labs Labs: Laboratory Results - last 24 hr 10/25/21 10/25/21 10/25/21 07:16 07:16 07:16 WBC 7.9 RBC 5.92 Hgb 18.1 H Hct 53.0 H MCV 89.5 MCH 30.6 MCHC 34.2 RDW 12.3 Plt Count 233 MPV 10.1 Sodium 139 Potassium 4.3 Chloride 100 Carbon Dioxide 32 H Anion Gap 7 L BUN 10 Creatinine 0.80 Estim Creat Clear Calc 121 Estimated GFR > 60 Glucose 104 Calcium 8.9 TSH (Reflex) 2.740 Quality VTE Prophylaxis VTE prophylaxis: mechanical ordered
[2021-10-25] MEDS: ENOXAPARIN 40 MG/0.4 ML SYRINGE SUB-Q (20:52)
[2021-10-26 00:33] VITALS: BP 108/66; PULSE 74; RESP 12; TEMP 36.6; O2SAT 97
[2021-10-26 04:00] VITALS: BP 115/77; PULSE 85; RESP 16; TEMP 36.1; O2SAT 99
[2021-10-26] MEDS: HYDROcodone/acetaminophen (*CRX) 7.5-325 MG TABLET 1 TAB PO ×2 (05:24→12:41)
[2021-10-26] MEDS: PANTOPRAZOLE 40 MG TABLET PO (08:59)
--- NOTE | 2021-10-26 13:48 | PM.IMPN ---
Progress Note: A&P Assessment and Plan (1) Pneumothorax: Qualifiers: Pneumothorax type: spontaneous, primary Qualified Code(s): J93.11 - Primary spontaneous pneumothorax Code(s): J93.9 - Pneumothorax, unspecified Status: Acute (2) Polycythemia: Code(s): D75.1 - Secondary polycythemia Status: Acute (3) COVID-19: Code(s): U07.1 - COVID-19 Status: Acute Additional Plan # spontaneous pneumothorax -after having COVID-19 on 10/13, now resolved on any more therapy -continue chest tube management as per surgery team. Chest tube clamped. -chest x-ray noon shows small right apical pneumothorax -surgeon to decide when chest tube needs to be removed -pain control: [place] and Dilaudid -bowel regimen: MiraLax -nausea: Zofran # hyponatremia -resolved, normal 139 # polycythemia -patient COVID-19 recently, will continue following, patient probably should have repeat labs a month out after COVID 19 # other chronic conditions -GERD: Home Prilosec, on Protonix here Diet: Regular DVT prophylaxis: Lovenox Code status: Full code Disposition: Pending clinical course chest tube Time Spent With Patient Time with patient: 25 - 35 minutes Subjective Date/time seen: 10/26/21 13:48 Patient seen examined. A chest tube to water seal. Chest x-ray around noon shows small right apical pneumothorax stable. Will see if surgery team plans to remove chest tube were not. Also patient incentive spirometer and feels good. He denies fever, chills, nausea, vomiting, diarrhea, chest pain, shortness of breath. Review of Systems Review of Systems: All systems reviewed & are unremarkable except as noted in HPI and below Exam Narrative: - GENERAL: Pleasant male no acute distress. Well-nourished. - EYES: EOMI. Anicteric. - HENT: Moist mucous membranes. No scleral icterus. - LUNGS: Clear to auscultation bilaterally, no wheezing, rhonchi, or rales. Chest tube right lung clamped - CARDIOVASCULAR: Regular rate and rhythm. No murmur. No JVD. - ABDOMEN: Soft, non-tender and non-distended. No palpable masses. - EXTREMITIES: No edema. Peripheral pulses 2+. Non-tender. - NEUROLOGIC: No focal neurological deficits. CN II-XII grossly intact. - PSYCHIATRIC: Awake, Alert and oriented x 3. Appropriate mood and affect. - SKIN: No rashes or lesions. Warm. - LYMPH: No cervical lymphadenopathy. Objective Data Vital Signs Vital Signs: Vital Signs - 24 hr 10/25/21 15:58 10/25/21 19:59 10/25/21 23:48 Temperature 36.6 C 36.6 C 36.6 C Pulse Rate 100 78 70 Respiratory Rate 16 14 16 Blood Pressure 137/92 H 132/77 108/66 Pulse Oximetry 98 95 98 10/26/21 00:33 10/26/21 04:00 Temperature 36.6 C 36.1 C L Pulse Rate 74 85 Respiratory Rate 12 16 Blood Pressure 108/66 115/77 Pulse Oximetry 97 99 Intake/Output Intake/Output: Intake & Output 10/23/21 10/24/21 10/25/21 10/26/21 23:59 23:59 23:59 23:59 Intake Total 2450 1540 1590 480 Output Total 2610 350 1568 800 Balance -160 1190 22 -320 Meds/Results Medications: Active Medications Generic Name Dose Route Start Last Admin Trade Name Freq PRN Reason Stop Dose Admin Hydrocodone Bitart/Acetaminophen 1 tab 10/23/21 12:40 10/26/21 12:41 Hydrocodone/Acetaminophen (*Crx) 7.5-325 Mg Tablet PO 1 tab Q4H PRN Administration Pain Rated 4-6 Albuterol 2 puff 10/21/21 14:35 Albuterol Sulfate (*Sp) Aerosol 1 Puff INHALATION Q6HRT PRN Shortness Of Breath Enoxaparin Sodium 40 mg 10/21/21 21:00 10/25/21 20:52 Enoxaparin 40 Mg/0.4 Ml Syringe SUB-Q 40 mg Q24H PEDRITO Administration Hydromorphone HCl 0.5 mg 10/21/21 11:01 10/24/21 18:14 Hydromorphone Hcl Inj (*Crx) 1 Mg/Ml Syr IV PUSH 0.5 mg Q4H PRN Administration Pain Rated 7-10 Ondansetron HCl 4 mg 10/21/21 11:01 Ondansetron Inj 4 Mg/2 Ml Vial IV PUSH Q4H PRN Nausea Pantoprazole Sodium 40 mg 10/22/21 09:00 10/26/21 08:59 Pantoprazole 4
[2021-10-26 14:00] VITALS: BP 145/82; PULSE 87; RESP 20; TEMP 36.3; O2SAT 97
--- NOTE | 2021-10-26 15:13 | PM.PNGS ---
Progress Note: A&P Assessment and Plan (1) Pneumothorax: Qualifiers: Pneumothorax type: spontaneous, primary Qualified Code(s): J93.11 - Primary spontaneous pneumothorax Code(s): J93.9 - Pneumothorax, unspecified Status: Acute Assessment and Plan: Right-sided chest tube removed without difficulty today after chest x-ray at noon with chest tube clamped revealed no increase in size of the small apical pneumothorax on the right. Recheck two view CXR down in the radiology department in am. encouraged IS Subjective Subjective Date/Time Seen: 10/26/21 15:13 Patient reports: no new complaints and tolerating a regular diet Interval history: The patient had his chest tube clamped for about 2 hours before I saw him today. He was having no shortness of breath & no problems. I returned to see him at approximately 2:00 p.m. and removed the RT. chest tube since the chest x-ray with the chest tube clamped showed no increase in pneumothorax. He tolerated this well. See plan below. Review of Systems Review of Systems: All systems reviewed & are unremarkable except as noted in HPI and below Respiratory: Respiratory: Reports as per HPI, Reports no additional respiratory complaints, Denies cough, Reports pain on inspiration, Denies dyspnea and Denies wheezing Exam HENMT: Head: normocephalic and atraumatic Ears: hearing grossly normal bilaterally General nose exam: Normal external nose present and Normal nares present Mouth: Yes Normal oral and palatal mucosa present and Yes moist mucous membranes Chest: Chest palpation & inspection: normal inspection of the chest Other: R CT - no air leak, mild SQ crepitus ext to RUE, R neck Resp: Effort & Inspection: normal respiratory effort and able to speak in complete sentences Auscultation: clear to auscultation bilaterally Percussion: percussion normal tactile fremitus present: other ( palpable crepitance along the axillary area of RT chest wall& clavicle ) Other: Right chest tube in place with no air leak. procedure note: With the assistance of Prabha floor nurse present and helping I removed the patient's chest tube under standard conditions. Dressing was taken down exit site inspected. Suture holding the chest tube was cut an on wound. A nurse held pressure over the skin just above the exit site while I removed the Vaseline gauze and cut the suture and under sterile conditions. Following this with the patient breathing now we quickly slip the chest tube out applying pressure over the wound and the skin above the wound with a sterile 4 x 4 and underlying Vaseline gauze. We then completely seal the dressing down with 3 pieces the tape. Patient will leave this in place for 3 days without removal. Two black sutures remain closing the incision used to place the larger chest tube. These will need to be removed in the office in 1-2 weeks. DJ Extrem: General: normal to inspection and capillary refill normal Objective Data Vital Signs Vital Signs: Vital Signs - 24 hr 10/25/21 15:58 10/25/21 19:59 10/25/21 23:48 Temperature 36.6 C 36.6 C 36.6 C Pulse Rate 100 78 70 Respiratory Rate 16 14 16 Blood Pressure 137/92 H 132/77 108/66 Pulse Oximetry 98 95 98 10/26/21 00:33 10/26/21 04:00 10/26/21 14:00 Temperature 36.6 C 36.1 C L 36.3 C L Pulse Rate 74 85 87 Respiratory Rate 12 16 20 Blood Pressure 108/66 115/77 145/82 H Pulse Oximetry 97 99 97 Intake/Output Intake/Output: Intake & Output 10/23/21 10/24/21 10/25/21 10/26/21 23:59 23:59 23:59 23:59 Intake Total 2450 1540 1590 480 Output Total 2610 350 1568 800 Balance -160 1190 22 -320 Meds/Results Medications: Active Medications Generic Name Dose Route Start Last Admin Trade Name Freq PRN Reason Stop Dose Admin Hydrocodone Bitart/Acetaminophen 1 tab 10/23/21 12:40 10/26/21 12:41 Hydrocodone/Acetaminophen (*Crx) 7.5-325 Mg Tablet PO 1 tab Q4H PRN Administration Pain
--- NOTE | 2021-10-26 15:35 | W.PM.PROC2 ---
Procedure Note - Detailed Date of Procedure 10/26/21 Pre-op Diagnosis RT pneumothorax/status post chest tube/Covid infectio Post-op Diagnosis same Procedure Performed Rt. Chest tube removal Surgeon Pelon Hernández MD Sports Management Professor patient's floor nurse Anesthesia other ( none required) Indications near complete resolution of right pneumothorax Findings normal chest wall anatomy on the side of tube placement. to remain black sutures closing the lateral part of the insertion site of the chest tube. Description of Procedure procedure note: With the assistance of Prabha floor nurse present and helping I removed the patient's chest tube under standard conditions. Dressing was taken down exit site inspected. Suture holding the chest tube was cut an on wound. A nurse held pressure over the skin just above the exit site while I removed the Vaseline gauze and cut the suture and under sterile conditions. Following this with the patient breathing now we quickly slip the chest tube out applying pressure over the wound and the skin above the wound with a sterile 4 x 4 and underlying Vaseline gauze. We then completely seal the dressing down with 3 pieces the tape. Patient will leave this in place for 3 days without removal. Two black sutures remain closing the incision used to place the larger chest tube. These will need to be removed in the office in 1-2 weeks. D Implants chest tube Estimated Blood Loss 0 Drains No Packing No Pathology none sent Complications No immediate complications Condition stable Disposition floor ( Dressing with Vaseline gauze 4x4s and tape completed after removal. Auscultation of patient's lungs following the procedure is unchanged compared to prior to moving chest tube. Some crepitus on the right in the axillary area and posteriorly at the mid chest level.)
[2021-10-26] MEDS: ENOXAPARIN 40 MG/0.4 ML SYRINGE SUB-Q (21:22)
[2021-10-26 22:05] VITALS: BP 133/82; PULSE 92; RESP 18; TEMP 36.3; O2SAT 96
[2021-10-27] MEDS: HYDROcodone/acetaminophen (*CRX) 7.5-325 MG TABLET 1 TAB PO ×2 (02:33→17:39)
[2021-10-27 06:10] VITALS: BP 128/77; PULSE 88; RESP 18; TEMP 36.4; O2SAT 97
[2021-10-27] MEDS: PANTOPRAZOLE 40 MG TABLET PO (10:09)
[2021-10-27] MEDS: PHENYLEPH/SHARK OIL/MO/PETROL CREAM 26 GM 1 APPLIC RECTAL (10:09)
--- NOTE | 2021-10-27 11:25 | PM.PNGS ---
Progress Note: A&P Assessment and Plan (1) Pneumothorax: Onset Date: ~10/12/21 Qualifiers: Pneumothorax type: spontaneous, primary Qualified Code(s): J93.11 - Primary spontaneous pneumothorax Code(s): J93.9 - Pneumothorax, unspecified Status: Acute Assessment and Plan: Right-sided chest tube removed without difficulty at approximately 2:00 p.m. on 10/26/2021, after chest x-ray at noon with chest tube clamped revealed no increase in size of the small apical pneumothorax on the right. Recheck two view CXR down in the radiology department this am (10/27/2021) shows slightly enlarged apical pneumothorax on the right. For now will stop IS. Place patient on 2 L of oxygen since he is asymptomatic will observe. I do not detect any increase in subcu emphysema. Patient states he did cough fairly hard 5-6 times through the night and noticed a little bit of increased drainage at the sealed old chest tube site on the right. He denies however any current shortness of breath or right-sided chest pain. He has not noticed any increase in the crepitus or subcu air along his chest cavity right shoulder right neck. To me there about the same as yesterday on exam. For now I have discussed the plan with the patient to repeat a chest x-ray around 1-2 p.m. this afternoon to see if this seems to be getting bigger or staying the same. If he is asymptomatic perhaps we can discharge him tomorrow after 24 hours and plan for a thoracic surgery consultation next week. Obviously if it gets larger would perhaps need to replace the chest tube and then consider transfer in the next few days to [facility] if there is a thoracic surgeon available (previously the ED here talk to a Dr. Johnson it is at [facility]). Will also check about availability of placement of a smaller percutaneous CT-guided chest tube with Heimlich valve with our interventional radiologist. Theoretically he might be able to go home with that in place. Additional Plan I have discussed the patient's case and plan of care with patient and Dr. William. Subjective Subjective Date/Time Seen: 10/27/21 11:25 Patient reports: no new complaints, pain is less and tolerating a regular diet Interval history: Patient feels well and does not have any shortness of breath or chest pain. However, informed him of the chest x-ray results from this morning which shows slight enlargement of an apical right pneumothorax after chest tube removal yesterday afternoon. Review of Systems Review of Systems: All systems reviewed & are unremarkable except as noted in HPI and below Cardiovascular: Cardiovascular: Denies chest pain and Denies dyspnea Respiratory: Respiratory: Reports as per HPI, Reports no additional respiratory complaints, Denies cough, Reports pain on inspiration, Denies dyspnea and Denies wheezing Gastrointestinal: Gastrointestinal: Denies diarrhea, Denies nausea and Denies vomiting Exam Const: General: cooperative, comfortable, no acute distress and alert; No acute distress Orientation/consciousness: patient oriented x3 Limitations: no limitations HENMT: Head: normocephalic and atraumatic Ears: hearing grossly normal bilaterally General nose exam: Normal external nose present and Normal nares present Mouth: Yes Normal oral and palatal mucosa present and Yes moist mucous membranes Neck: Neck: normal visual inspection, full ROM, no lymphadenopathy, supple and no JVD Lymphatic: no lymphadenopathy noted Chest: Chest palpation & inspection: normal inspection of the chest Other: R CT - no air leak, mild SQ crepitus ext to RUE, R neck GI: Inspection: normal to inspection Auscultation: normal bowel sounds Objective Data Vital Signs Vital Signs: Vital Signs - 24 hr 10/26/21 14:00 10/26/21 22:05 10/27/21 06:10 Temperature 36.3 C L 36.3 C L 36.4 C L Pulse Rate 87 92 88 Respiratory Rate 20 18 18 Blood Pressure 145/82 H 133/82 128/77 Pulse Oximetry 97 96
[2021-10-27 12:00] VITALS: BP 129/76; PULSE 90; RESP 18; TEMP 37.1; O2SAT 99
[2021-10-27 13:35] LABS: Prothrombin Time 12.8 Seconds (11.1-14.7)
[2021-10-27 13:36] LABS: Partial Thromboplastin Time 29.2 SECONDS (22.3-36.8)
--- NOTE | 2021-10-27 13:58 | PM.IMPN ---
Progress Note: A&P Assessment and Plan (1) Hyponatremia: Code(s): E87.1 - Hypo-osmolality and hyponatremia Status: Acute (2) Polycythemia: Code(s): D75.1 - Secondary polycythemia Status: Acute (3) Pneumothorax: Onset Date: ~10/12/21 Qualifiers: Pneumothorax type: spontaneous, primary Qualified Code(s): J93.11 - Primary spontaneous pneumothorax Code(s): J93.9 - Pneumothorax, unspecified Status: Acute (4) Tachycardia: Code(s): R00.0 - Tachycardia, unspecified Status: Acute Additional Plan # spontaneous pneumothorax -after having COVID-19 on 10/13, now resolved -continue chest tube management as per surgery team. Chest tube removed by a general surgeon yesterday. Chest x-ray this morning shows worsening moderate size right pneumothorax. Asymptomatic otherwise. We will continue to monitor, may need a new chest tube, may need IR guided versus transfer for CT surgery. -chest x-ray shows moderate right pneumothorax -pain control: [place] and Dilaudid -bowel regimen: MiraLax -nausea: Zofran # hyponatremia -resolved, normal 139 # polycythemia -patient COVID-19 recently, will continue following, patient probably should have repeat labs a month out after COVID 19 # other chronic conditions -GERD: Home Prilosec, on Protonix here Diet: Regular DVT prophylaxis: Lovenox Code status: Full code Disposition: Pending clinic workup Subjective Date/time seen: 10/27/21 13:58 Patient seen examined. Chest tubes removed yesterday without incident, chest x-ray this morning shows worsening pneumothorax. Discussed with surgeon. If he is doing well after 24 hours then will discharge home for thoracic surgery consultation next week otherwise he may need to have a replaced a new chest tube and transferred to [facility] for thoracic surgery. Other possibility is Heimlich valve by interventional radiology CT-guided percutaneous chest tube. Patient denies fever, chills, nausea, vomiting, diarrhea. He is very frustrated and anxious about this pneumothorax. Review of Systems Review of Systems: All systems reviewed & are unremarkable except as noted in HPI and below Exam Narrative: - GENERAL: Pleasant male no acute distress. Well-nourished. - EYES: EOMI. Anicteric. - HENT: Moist mucous membranes. No scleral icterus. - LUNGS: Clear to auscultation bilaterally, no wheezing, rhonchi, or rales. Dressing over removed chest tube site right lung - CARDIOVASCULAR: Regular rate and rhythm. No murmur. No JVD. - ABDOMEN: Soft, non-tender and non-distended. No palpable masses. - EXTREMITIES: No edema. Peripheral pulses 2+. Non-tender. - NEUROLOGIC: No focal neurological deficits. CN II-XII grossly intact. - PSYCHIATRIC: Awake, Alert and oriented x 3. Anxious mood and appropriate affect. - SKIN: No rashes or lesions. Warm. - LYMPH: No cervical lymphadenopathy. Objective Data Vital Signs Vital Signs: Vital Signs - 24 hr 10/26/21 14:00 10/26/21 22:05 10/27/21 06:10 Temperature 36.3 C L 36.3 C L 36.4 C L Pulse Rate 87 92 88 Respiratory Rate 20 18 18 Blood Pressure 145/82 H 133/82 128/77 Pulse Oximetry 97 96 97 10/27/21 12:00 Temperature 37.1 C Pulse Rate 90 Respiratory Rate 18 Blood Pressure 129/76 Pulse Oximetry 99 Intake/Output Intake/Output: Intake & Output 10/24/21 10/25/21 10/26/21 10/27/21 23:59 23:59 23:59 23:59 Intake Total 1540 1590 2814 360 Output Total 350 1568 800 Balance 1190 22 2014 360 Meds/Results Medications: Active Medications Generic Name Dose Route Start Last Admin Trade Name Freq PRN Reason Stop Dose Admin Hydrocodone Bitart/Acetaminophen 1 tab 10/23/21 12:40 10/27/21 02:33 Hydrocodone/Acetaminophen (*Crx) 7.5-325 Mg Tablet PO 1 tab Q4H PRN Administration Pain Rated 4-6 Albuterol 2 puff 10/21/21 14:35 Albuterol Sulfate (*Sp) Aerosol 1 Puff INHALATION Q6HRT PRN Shortness Of Breath Enoxaparin Sodium 40
[2021-10-27] MEDS: NICOTINE (*PBKC) 7 MG PATCH 1 PATCH TRANSDERM (14:29)
[2021-10-27 16:00] VITALS: BP 131/80; PULSE 91; RESP 18; TEMP 36.7; O2SAT 98
[2021-10-27 20:00] VITALS: BP 116/73; PULSE 80; PULSE 81; RESP 16; TEMP 36.3; O2SAT 94; O2SAT 95
[2021-10-27] MEDS: ENOXAPARIN 40 MG/0.4 ML SYRINGE SUB-Q (20:38)
[2021-10-27 23:57] VITALS: BP 115/72; PULSE 81; RESP 16; TEMP 37.1; O2SAT 94
[2021-10-28] MEDS: HYDROcodone/acetaminophen (*CRX) 7.5-325 MG TABLET 1 TAB PO ×2 (00:36→09:07)
[2021-10-28 04:00] VITALS: BP 106/61; PULSE 114; RESP 18; TEMP 36.3; O2SAT 99
[2021-10-28 08:00] VITALS: PULSE 114; RESP 18; O2SAT 99
[2021-10-28 08:04] LABS: Anion Gap 9 mmol/L (8-16); Basophils Percent Auto 0.6 % (0.2-1.2); Blood Urea Nitrogen 11 mg/dL (9-20); Calcium 8.9 mg/dL (8.4-10.2); Carbon Dioxide 25 mmol/L (22-30); Chloride 104 mmol/L (98-107); Eosinophils Absolute Auto 0.5 K/mm3 (0-0.3); Eosinophils Percent Auto 6.7 % (0-4.4); Estimated CRCL calculation 121 ml/min; Estimated Glomerular Filt Rate > 60; Glucose 94 mg/dL (65-110); Hemoglobin 17.7 g/dL (14.0-18.0); Immature Granulocyte Absolute 0.02 K/mm3 (0.00-0.031); Immature Granulocyte Percent A 0.3 % (0-0.5); Lymphocytes Absolute Auto 2.23 K/mm3 (0.9-3.2); Lymphocytes Percent Auto 32.6 % (18.3-44.2); Mean Corpuscular Hemoglobin 30.5 pg (26-34); Mean Corpuscular Volume 89.5 fl (80-100); Monocytes Absolute Auto 0.6 K/mm3 (0.1-0.6); Monocytes Percent Auto 8.8 % (2.6-8.5); Neutrophils Absolute Auto 3.5 K/mm3 (1.3-6.7); Platelet Count Result 245 k/mm3 (150-375); Potassium 4.1 mmol/L (3.4-5.0); Red Blood Count 5.81 M/mm3 (4.6-6.20); Red Cell Distribution Width 12.3 % (11.5-14.5); Sodium 138 mmol/L (137-145); White Blood Count 6.9 K/mm3 (4.5-10.0)
[2021-10-28] MEDS: PANTOPRAZOLE 40 MG TABLET PO (09:04)
[2021-10-28] MEDS: NICOTINE (*PBKC) 7 MG PATCH 1 PATCH TRANSDERM (09:04)
--- NOTE | 2021-10-28 09:04 | PM.PNGS ---
Progress Note: A&P Assessment and Plan (1) Pneumothorax: Onset Date: ~10/12/21 Qualifiers: Pneumothorax type: spontaneous, primary Qualified Code(s): J93.11 - Primary spontaneous pneumothorax Code(s): J93.9 - Pneumothorax, unspecified Status: Acute Assessment and Plan: Our game plan for care of this is to discharge patient with right-sided pigtail chest tube connected to a Heimlich valve. This will prevent further worsening of his small pneumothorax until he can get to see the thoracic surgeon as an outpatient and consider further treatment to prevent recurrent right-sided pneumothorax which he has experienced x2 at this time. I have Ez passed case coordination to call back the thoracic surgeon at [facility] that was contacted by our ER this admission. They did not have room for the patient as an inpatient. To let them know that he is now being discharged with a small chest tube in small residual pneumothorax connected to a Heimlich valve and could be seen sometime in the next 5 days as an outpatient. (2) Tobacco abuse: Code(s): Z72.0 - Tobacco use Status: Acute Assessment and Plan: Had a thorough discussion with the patient about smoking cessation. He purposes not to smoke once he leaves the hospital. He did not smoke between this admission and his last. He has successfully using a 7 mg nicotine patch over the last 24 hours and plans to ask hospitalist for this when he goes home. I told him to consider this the time when he should stop smoking completely and never go back. Subjective Subjective Date/Time Seen: 10/28/21 09:04 Patient reports: feels better, still having pain (Moderate 1 to 3/10) and tolerating a regular diet Interval history: Patient states he is feeling okay. Ate a normal breakfast. Still has occasional aching type pain on his rights lateral chest from the subcu air and the current small chest tube that is in place connected to a Heimlich valve. I went over with patient instructions for home going. Review of Systems Review of Systems: All systems reviewed & are unremarkable except as noted in HPI and below Eyes: Eyes: Denies change in vision ENT: Denies hearing loss, Denies neck pain and Denies sore throat Cardiovascular: Cardiovascular: Denies chest pain and Denies dyspnea Respiratory: Respiratory: Reports as per HPI, Reports no additional respiratory complaints, Denies cough, Reports pain on inspiration, Denies dyspnea and Denies wheezing Gastrointestinal: Gastrointestinal: Denies diarrhea, Denies nausea and Denies vomiting Genitourinary: Genitourinary: Denies hematuria and Denies dysuria Musculoskeletal: Musculoskeletal: Denies arthralgias, Denies joint swelling and Denies neck pain Allergic/Immunologic: Allergic/Immunologic: Denies wheezing Exam Const: General: cooperative, comfortable, no acute distress and alert; No acute distress Orientation/consciousness: patient oriented x3 Limitations: no limitations HENMT: Head: normocephalic and atraumatic Ears: hearing grossly normal bilaterally General nose exam: Normal external nose present and Normal nares present Mouth: Yes Normal oral and palatal mucosa present and Yes moist mucous membranes Chest: Chest palpation & inspection: normal inspection of the chest Other: R CT -this is now small pigtail connected to a Heimlich valve. Patient will keep his taped in place and prevent dislodgement until he sees the thoracic surgeon at [facility] as an outpatient. Mild SQ crepitus ext to RUE, R neck and Rt. lateral chest. Objective Data Vital Signs Vital Signs: Vital Signs - 24 hr 10/27/21 12:00 10/27/21 16:00 10/27/21 20:00 Temperature 37.1 C 36.7 C 36.3 C L Pulse Rate 90 91 81 Respiratory Rate 18 18 16 Blood Pressure 129/76 131/80 116/73 Pulse Oximetry 99 98 94 10/27/21 23:57 10/28/21 04:00 Temperature 37.1 C 36.3 C L Pulse Rate 81 114 H Respiratory Rate 16 18
--- NOTE | 2021-10-28 13:00 | PM.DS ---
DS: Admitting Diagnosis Discharge Date 10/28/20 Admitting Diagnosis Spontaneous pneumothorax DS: Discharge Diagnosis Discharge Diagnosis (1) Pneumothorax: Onset Date: ~10/12/21 Qualifiers: Pneumothorax type: spontaneous, primary Qualified Code(s): J93.11 - Primary spontaneous pneumothorax Code(s): J93.9 - Pneumothorax, unspecified Status: Acute Assessment and Plan: Spontaneous pneumothorax after COVID 19 infection (2) COVID-19: Code(s): U07.1 - COVID-19 Status: Acute (3) Polycythemia: Code(s): D75.1 - Secondary polycythemia Status: Acute (4) Hyponatremia: Code(s): E87.1 - Hypo-osmolality and hyponatremia Status: Acute DS: Summary Hospital Course Reason for hospitalization: Spontaneous pneumothorax Hospital Course: Patient is a 41-year-old male past medical history of COVID-19, and recent pneumothorax who presents to ED with complaints of swelling in his chest arm and neck. He was diagnosed COVID-19 on 10/12/2021. Of note he has been vaccinated for Pfizer COVID-19 vaccine x2. His 1st pneumothorax status chest tube placed on 10/12/2021. This was thought to be secondary to the COVID-19 infection. He had pneumomediastinum tracking up his into his neck and right upper extremity. He is hemodynamically stable. Was then discharged on 10/15/2021 with resolution of his pneumothorax. Then returns to the hospital on 10/21/2021 with worsening of the pneumothorax and new chest tube was placed for this hospitalization. Surgeon was following case and chest tube was removed, subsequently reaccumulation of air for pneumothorax. Now 3rd chest tube placed on 10/27/2021 with Heimlich valve. Chest x-ray on 10/28/2019 to shows small right apical pneumothorax interval improvement, he still has the catheter in place. Patient will likely need VATS procedure that we cannot ride here. Patient to follow-up with Dr. Waylon Johnson thoracic surgery. Information given to patient to call tomorrow. Patient given pain control Rx for [place]. Chest tube with Heimlich valve will be followed up by Dr. Johnson. Of note he was found to have hyponatremia which resolved. He may have secondary polycythemia, patient needs lab work done month after COVID 19 infection to be worked up by primary care provider. At time of discharge patient's vitals are stable, labs stable, patient is stable for discharge home. Patient understands and agrees with plan. Status at Discharge Cognitive/behavioral status at discharge: At baseline Functional status at discharge: independent ambulation Overall status at discharge: patient is back to baseline Time Spent with Patient Time attestation: Total time spent providing and/or coordinating discharge services:35 Time spent: Greater than 30 minutes Exam Narrative: - GENERAL: Pleasant male no acute distress. Well-nourished. - EYES: EOMI. Anicteric. - HENT: Moist mucous membranes. No scleral icterus. - LUNGS: Clear to auscultation bilaterally, no wheezing, rhonchi, or rales. Dressing over right-sided chest tube Heimlich valve - CARDIOVASCULAR: Regular rate and rhythm. No murmur. No JVD. - ABDOMEN: Soft, non-tender and non-distended. No palpable masses. - EXTREMITIES: No edema. Peripheral pulses 2+. Non-tender. - NEUROLOGIC: No focal neurological deficits. CN II-XII grossly intact. - PSYCHIATRIC: Awake, Alert and oriented x 3. Anxious mood and appropriate affect. - SKIN: No rashes or lesions. Warm. He has crepitus through his right upper extremity into his neck - LYMPH: No cervical lymphadenopathy. DS: Data Data Completed and Pending Labs on day of discharge: Labs from last 24 hours 10/28/21 10/28/21 10/27/21 06:54 06:54 13:09 WBC 6.9 RBC 5.81 Hgb 17.7 Hct 52.0 MCV 89.5 MCH 30.5 MCHC 34.0 RDW 12.3 Plt Count 245 MPV 10.0 Immature Gran % (Auto) 0.3 Neut % (Auto) 51.0 Lymph % (Auto) 32.6 [place] % (Auto) 8.8 H Eos % (
--- NOTE | 2021-10-28 13:11 | PC.NURSE ---
Discharge paperwork explained to pt, medical recorders given to pt per pt request, inform signed for transferring medical recorders to specialist [facility]. Awaiting to pharmacy picking technician pt at this time.All question and concerns answers and verbalized understanding.
[2021-11-02 14:15] LABS: CALR Exon 9 Mutation Not Detected (Not Detected); CSF3R Exon 14/17 Mutation Not Detected (Not Detected); Clinical Indication Not Provided; JAK2 Exon 12 Mutation Not Detected (Not Detected); JAK2 V617F Mutation Not Detected (Not Detected); MPL Exon 10 Mutation Not Detected (Not Detected); Specimen Source Blood
== END 2021-10-28 13:50 | disposition home or self-care (01) | DRG 143 ==
LOC: ANHED 09:29 → ANH3MEDSUR 10-22 10:53
PROVIDERS: Physician Assistant; Surgery; Admitting Provider Family Medicine; Emergency Provider Emergency Medicine; Visit Provider Student in an Organized Health Care Education/Training Program
DX: J93.83 Other pneumothorax (principal); U09.9 Post COVID-19 condition, unspecified; D75.1 Secondary polycythemia; K21.9 Gastro-esophageal reflux disease without esophagitis; R00.0 Tachycardia, unspecified; R65.10 Systemic inflammatory response syndrome (SIRS) of non-infectious origin without acute organ dysfunction; E87.1 Hypo-osmolality and hyponatremia; Z87.891 Personal history of nicotine dependence; Z90.49 Acquired absence of other specified parts of digestive tract
CPT/HCPCS: 32550; 32551; 36415; 36600; 71045; 71046; 75989; 80048; 80053; 80076; 81219; 81270; 81402; 81403; 81479; 82668; 82728; 82805; 84443; 85025; 85027; 85380; 85610; 85730; 86140; 87040; 93005; 99285; A9270; C1729; C1769; J1170; J1650; J2060; J2270